=== PATIENT | female | born 1950 | race Two or more races ===

== ENCOUNTER 2017-03-08 14:50 | Inpatient (IN) | payer MEDICARE ==
[~2017-03-08] VITALS: Ht 162.6 cm; Wt 63.5 kg
--- NOTE | 2017-03-08 15:02 | Emergency Room Report ---
History of Present Illness General Chief Complaint: Syncope Source: Patient Present Illness HPI Patient is a 66-year-old female brought in by EMS after being sent in by PMD the patient was noted to have recent syncopal episode. The patient had been undergoing IV antibiotic treatment for infective endocarditis. Patient prior history of bipolar disorder. Patient poorly had a syncopal episode today with unknown length of time. The patient denies any current symptoms. She denies prior syncopal episodes. Patient stated that she had been having a rash to baby oil. Patient stated that the episode occurred while she was having a massage Allergies: Coded Allergies: No Known Allergies (Unverified , 03/08/17) Patient History Past Medical History: see triage record Past Surgical History: unable to obtain Reviewed Nursing Documentation: PMH: Agreed, PSxH: Agreed Nursing Documentation-PM Past Medical History: No History, Except For Hx Cardiac Problems: Yes - Endocarditis, hyperlipidemia Hx Hypertension: Yes - Osteoarthritis, spondylolisthesis, spinal stenosis Hx Asthma: Yes Hx Diabetes: Yes History Of Psychiatric Problem: Yes - Bipolar disorder, major depression Review of Systems All Other Systems: negative except mentioned in HPI Physical Exam Vital Signs Date Time Temp Pulse Resp B/P (MAP) Pulse Ox O2 Delivery O2 Flow Rate FiO2 03/08/17 14:52 98.8 102 20 112/50 97 Room Air Sp02 EP Interpretation: reviewed, normal General Appearance: normal inspection, well appearing, no apparent distress, alert, GCS 15 Head: atraumatic ENT: normal ENT inspection, hearing grossly normal, normal voice Neck: normal inspection, full range of motion, supple, no bony tend Respiratory: normal inspection, lungs clear, normal breath sounds, no respiratory distress, no retraction, no wheezing Cardiovascular #1: regular rate, rhythm, no edema Gastrointestinal: normal inspection, normal bowel sounds, non tender, soft, no guarding, no hernia Genitourinary: no CVA tenderness Musculoskeletal: normal inspection, back normal, normal range of motion Neurologic: normal inspection, alert, oriented x3, responsive, head piece assembler III-XII nml as tested, speech normal Psychiatric: normal inspection, judgement/insight normal, mood/affect normal Skin: normal inspection, other - generalized papular rash Medical Decision Making Diagnostic Impression: Primary Impression: Syncope Additional Impressions: QT prolongation Anemia Endocarditis ER Course patient presented for syncope.Differential diagnosis for syncope included arrhythmia, dehydration, acute coronary syndrome, severe anemia, pulmonary embolus.Because of complexity of patient's case laboratory testing and imaging studies were ordered. The patient noted have prior history of infective endocarditis. Patient was on toddler caregiver. The patient was started on IV fluids. Dr. Anderson was contacted for inpatient management due to patient's recent syncopal episode as well as history of endocarditis. Patient noted be somewhat anemic. The patient was typed and screened for blood. Labs Test 03/08/17 15:15 White Blood Count 3.8 K/UL (4.8-10.8) Red Blood Count 2.82 M/UL (4.20-5.40) Hemoglobin 8.0 G/DL (12.0-16.0) Hematocrit 25.9 % (37.0-47.0) Mean Corpuscular Volume 92 FL (80-99) Mean Corpuscular Hemoglobin 28.2 PG (27.0-31.0) Mean Corpuscular Hemoglobin Concent 30.7 G/DL (32.0-36.0) Red Cell Distribution Width 14.7 % (11.6-14.8) Platelet Count 175 K/UL (150-450) Mean Platelet Volume 6.4 FL (6.5-10.1) Neutrophils (%) (Auto) 75.7 % (45.0-75.0) Lymphocytes (%) (Auto) 17.9 % (20.0-45.0) Monocytes (%) (Auto) 4.7 % (1.0-10.0) Eosinophils (%) (Auto) 0.1 % (0.0-3.0) Basophils (%) (Auto) 1.6 % (0.0-2.0) Prothrombin Time 11.3 SEC (9.30-11.50) Prothromb Time International Ratio 1.1 (0.9-1.1) Activated Partial Thromboplast Time 29 SEC (23-33) Sodium Level 138 MMOL/L (136-145) Potassium Level 3.9 MMOL/L (3.5-5.1) Chloride Level 105 MMOL/L (98-107) Carbon Dioxide Level 24 MMOL/L (21-32) Anion Gap 9 mmol/L (5-15) Blood Urea Nitrogen 19 mg/dL (7-18) Creatinine 0.9 MG/DL (0.55-1.30) Estimat Glomerular Filtration Rate > 60 mL/min (>60) Glucose Level 147 MG/DL (74-106) Lactic Acid Level 1.30 mmol/L (0.66-2.22) Calcium Level 9.1 MG/DL (8.5-10.1) Total Bilirubin 0.4 MG/DL (0.2-1.0) Aspartate Amino Transf (AST/SGOT) 22 U/L (15-37) Alanine Aminotransferase (ALT/SGPT) 22 U/L (12-78) Alkaline Phosphatase 92 U/L (46-116) Total Creatine Kinase 20 U/L (26-308) Creatine Kinase MB 13.4 NG/ML (0.0-3.6) Creatine Kinase MB Relative Index 67.0 Troponin I 0.128 ng/mL (0.000-0.056) Total Protein 7.6 G/DL (6.4-8.2) Albumin 2.7 G/DL (3.4-5.0) Globulin 4.9 g/dL Albumin/Globulin Ratio 0.6 (1.0-2.7) Lipase 163 U/L (73-393) EKG Diagnostic Results Rate: tachycardiac Rhythm: NSR - 104 ST Segments: other - qt prolongation Rhythm Strip Diag. Results EP Interpretation: yes Rhythm: no PVC's, no ectopy, other - sinus tachycardia 105 Last Vital Signs Date Time Temp Pulse Resp B/P (MAP) Pulse Ox O2 Delivery O2 Flow Rate FiO2 03/08/17 14:52 98.8 102 20 112/50 97 Room Air Status: unchanged Disposition: ADMITTED INPATIENT Condition: Serious Augusto Collazo Mar 08, 2017 15:02
--- NOTE | 2017-03-08 15:21 | Diagnostic Imaging Report ---
Indication: Dyspnea Comparison: None A single view chest radiograph was obtained. Findings: Osteopenic. Heart is enlarged. There is a PICC line on the right with the tip in the SVC. Lungs are essentially clear. Vascularity is mildly prominent. Impression: No acute disease
[2017-03-08 15:53] LABS: BASOPHILS % (AUTO) 1.6 % (0.0-2.0); EOSINOPHILS % (AUTO) 0.1 % (0.0-3.0); LYMPHOCYTES % (AUTO) 17.9 % (20.0-45.0); MEAN CORPUSCULAR HEMOGLOBIN 28.2 PG (27.0-31.0); MEAN CORPUSCULAR HGB CONC 30.7 G/DL (32.0-36.0); MEAN CORPUSCULAR VOLUME 92 FL (80-99); MEAN PLATELET VOLUME 6.4 FL (6.5-10.1); MONOCYTES % (AUTO) 4.7 % (1.0-10.0); NEUTROPHILS % (AUTO) 75.7 % (45.0-75.0); PLATELET COUNT 175 K/UL (150-450); RED BLOOD COUNT 2.82 M/UL (4.20-5.40); RED CELL DISTRIBUTION WIDTH 14.7 % (11.6-14.8); WHITE BLOOD COUNT 3.8 K/UL (4.8-10.8)
[2017-03-08 15:56] LABS: INR 1.1 (0.9-1.1); PROTHROMBIN TIME 11.3 SEC (9.30-11.50)
[2017-03-08 16:06] LABS: ANION GAP 9 mmol/L (5-15); CALCIUM 9.1 MG/DL (8.5-10.1); CARBON DIOXIDE 24 MMOL/L (21-32); CHLORIDE 105 MMOL/L (98-107); CREATININE 0.9 MG/DL (0.55-1.30); GLOMERULAR FILTRATION RATE > 60 mL/min (>60); POTASSIUM 3.9 MMOL/L (3.5-5.1); SODIUM 138 MMOL/L (136-145)
[2017-03-08 16:20] LABS: ALANINE AMINOTRANSFERASE 22 U/L (12-78); ALBUMIN/GLOBULIN RATIO 0.6 (1.0-2.7); ASPARTATE AMINO TRANSFERASE 22 U/L (15-37); CKMB 13.4 NG/ML (0.0-3.6); LIPASE 163 U/L (73-393); TOTAL PROTEIN 7.6 G/DL (6.4-8.2)
[2017-03-08 16:30] VITALS: BP 128/62
[2017-03-08] MEDS ORDERED: ALBUTEROL2.5 MG/3 M INH (16:40)
[2017-03-08] MEDS ORDERED: NORCO 5-325 TA1 EACH ORAL (16:40)
[2017-03-08] MEDS ORDERED: ACETAMINOPHEN325 M1 ORAL (16:40)
[2017-03-08] MEDS ORDERED: ASPIR 8181 MG ORAL (16:41)
[2017-03-08] MEDS ORDERED: LISPRO SUBQ (16:41)
[2017-03-08] MEDS ORDERED: VIBRAMYCIN100 MG ORAL (16:43)
[2017-03-08] MEDS ORDERED: FLUOXETINE HCL20 MG ORAL (16:43)
[2017-03-08] MEDS ORDERED: ATORVASTATIN CA40 MG ORAL (16:43)
[2017-03-08] MEDS ORDERED: ZYPREXA5 MG ORAL (16:43)
[2017-03-08] MEDS ORDERED: GENTAMICIN IV (16:43)
[2017-03-08] MEDS ORDERED: METFORMIN HCL850 M1 ORAL (16:45)
[2017-03-08] MEDS ORDERED: LOVENOX10 M4 SUBQ (16:45)
[2017-03-08] MEDS ORDERED: CEPHALEXIN500 M1 ORAL (16:45)
[2017-03-08] MEDS ORDERED: VANCOMYCIN1.5 GM/252 IV (16:45)
[2017-03-08] MEDS ORDERED: COLACE100 MG ORAL (16:45)
--- NOTE | 2017-03-08 18:13 | Cardiology Progress Note ---
Assessment/Plan Assessment/Plan The patient is seen and examined, full consult note is dictated. Objective Last 24 Hour Vital Signs Date Time Temp Pulse Resp B/P (MAP) Pulse Ox O2 Delivery O2 Flow Rate FiO2 03/08/17 14:52 98.8 102 20 112/50 97 Room Air Intake and Output 03/08/17 03/09/17 19:00 07:00 Intake Total 0 ml Balance 0 ml Intake Oral 0 ml Laboratory Tests Test 03/08/17 15:15 White Blood Count 3.8 K/UL (4.8-10.8) L Red Blood Count 2.82 M/UL (4.20-5.40) L Hemoglobin 8.0 G/DL (12.0-16.0) L Hematocrit 25.9 % (37.0-47.0) L Mean Corpuscular Volume 92 FL (80-99) Mean Corpuscular Hemoglobin 28.2 PG (27.0-31.0) Mean Corpuscular Hemoglobin Concent 30.7 G/DL (32.0-36.0) L Red Cell Distribution Width 14.7 % (11.6-14.8) Platelet Count 175 K/UL (150-450) Mean Platelet Volume 6.4 FL (6.5-10.1) L Neutrophils (%) (Auto) 75.7 % (45.0-75.0) H Lymphocytes (%) (Auto) 17.9 % (20.0-45.0) L Monocytes (%) (Auto) 4.7 % (1.0-10.0) Eosinophils (%) (Auto) 0.1 % (0.0-3.0) Basophils (%) (Auto) 1.6 % (0.0-2.0) Prothrombin Time 11.3 SEC (9.30-11.50) Prothromb Time International Ratio 1.1 (0.9-1.1) Activated Partial Thromboplast Time 29 SEC (23-33) Sodium Level 138 MMOL/L (136-145) Potassium Level 3.9 MMOL/L (3.5-5.1) Chloride Level 105 MMOL/L (98-107) Carbon Dioxide Level 24 MMOL/L (21-32) Anion Gap 9 mmol/L (5-15) Blood Urea Nitrogen 19 mg/dL (7-18) H Creatinine 0.9 MG/DL (0.55-1.30) Estimat Glomerular Filtration Rate > 60 mL/min (>60) Glucose Level 147 MG/DL (74-106) H Lactic Acid Level 1.30 mmol/L (0.66-2.22) Calcium Level 9.1 MG/DL (8.5-10.1) Total Bilirubin 0.4 MG/DL (0.2-1.0) Aspartate Amino Transf (AST/SGOT) 22 U/L (15-37) Alanine Aminotransferase (ALT/SGPT) 22 U/L (12-78) Alkaline Phosphatase 92 U/L (46-116) Total Creatine Kinase 20 U/L (26-308) L Creatine Kinase MB 13.4 NG/ML (0.0-3.6) H Creatine Kinase MB Relative Index 67.0 Troponin I 0.128 ng/mL (0.000-0.056) Total Protein 7.6 G/DL (6.4-8.2) Albumin 2.7 G/DL (3.4-5.0) L Globulin 4.9 g/dL Albumin/Globulin Ratio 0.6 (1.0-2.7) L Lipase 163 U/L (73-393) ARMANDO BLUE Mar 08, 2017 18:13
[2017-03-08 18:35] VITALS: BP 134/68
[2017-03-08 20:00] VITALS: BP 105/52
[2017-03-08] MEDS ORDERED: Norco 5mg/325mg tab ORAL PRN (21:00)
[2017-03-08] MEDS ORDERED: Albuterol ud Inhalation HHN PRN (21:00)
[2017-03-08] MEDS: Atorvastatin 20mg tab ORAL SCH (22:27)
[2017-03-08] MEDS: DiphenhydrAMINE 50mg/ml Inj IVP PRN (22:28)
[2017-03-08] MEDS ORDERED: Enoxaparin 40mg Inj SUBQ ONE (23:00)
[2017-03-08] MEDS: Cephalexin 500mg cap ORAL SCH (23:31)
[2017-03-09] VITALS: BP 116/59
[2017-03-09 04:00] VITALS: BP 128/65
--- NOTE | 2017-03-09 04:00 | Consultation ---
DATE OF CONSULTATION: 03/08/2017 CARDIOLOGY CONSULTATION CONSULTING PHYSICIAN: Jose Corbin M.D. REFERRING PHYSICIAN: Carolee Anderson M.D. REASON FOR CONSULTATION: Management of syncope. HISTORY OF PRESENT ILLNESS: The patient is a very unfortunate 66-year-old female, who was brought in by EMS after the primary care physician in the [facility], decision made following an episode of syncopal event that happened when the patient was receiving massage. The patient denies any syncopal event. She claims that she did not lose consciousness, however, according to the note, the patient did have loss of consciousness on arrival to the hospital. She was tachycardic at a rate of 102 and despite three liters of IV fluid in the emergency department, tachycardia persisted. She was admitted to telemetry for further evaluation and management. She was recently diagnosed with infective endocarditis at the hospital in [place] and discharged after one week of therapy with IV antibiotics to [facility]. She currently denies any chest pain or shortness of breath. She states that she was walking in the facility without having any dyspnea on exertion or feeling dizziness or lightheadedness. PAST MEDICAL HISTORY: Infective endocarditis, hyperlipidemia, osteoarthritis, spinal stenosis, spondylolisthesis, history of asthma, history of diabetes mellitus, history of bipolar disorder/history of major depression. PAST SURGICAL HISTORY: Right arm PICC placement. MEDICATIONS: List of medications include acetaminophen 650 mg q.4 h. p.r.n. pain, albuterol inhaler 3 mL inhaler q.4 h. p.r.n. shortness of breath, aspirin 81 mg daily, atorvastatin 40 mg daily at bedtime, cephalexin 500 mg q.6 h. p.o., Colace 100 mg p.o. twice daily, vancomycin 100 mg oral q.12 h., Lovenox 40 mg subcutaneously twice daily, fluoxetine 20 mg p.o. daily, gentamicin 60 mg IV b.i.d., [place] 5/325 mg one tablet q.6 h. p.r.n. pain, metformin 850 mg twice daily, Zyprexa 5 mg p.o. daily at bedtime, and vancomycin 1.5 g IV b.i.d. SOCIAL HISTORY: Denies any tobacco, alcohol, or illicit drug use. FAMILY HISTORY: No premature coronary artery disease or arrhythmogenic in a first-degree relative. REVIEW OF SYSTEMS: HEENT: Denies any headache, diplopia, or blurred vision. CONSTITUTIONAL: Denies any fever, chills, night sweats, or weight loss. CARDIOVASCULAR: Denies any chest pain, shortness breath, PND, or orthopnea. Denies any palpitation. Positive for syncope. PULMONARY: Denies any cough, hemoptysis, or wheezing. GASTROINTESTINAL: Denies any nausea, vomiting, diarrhea, constipation, abdominal pain, or GI bleed. GENITOURINARY: Denies any hematuria, dysuria, or incontinence. NEUROLOGIC: Denies any motor dysfunction, sensory deficit, or altered speech. Positive syncope. PHYSICAL EXAMINATION: VITAL SIGNS: Blood pressure was 112/50, pulse 102, respirations 20, temperature 98.8 degrees Fahrenheit, and O2 saturation 97% on room air. GENERAL: The patient is a very pleasant 66-year-old female, in no apparent respiratory distress, alert and oriented x4. HEENT: Atraumatic and normocephalic. ENT, pupils are equal, round, and reactive to light and accommodation. Extraocular muscles are intact. NECK: JVP less than 5 cm. No carotid bruits. Carotid upstrokes 2+ bilaterally. CARDIOVASCULAR: Normal S1 and S2. Regular rate and rhythm. No murmurs, gallops, or rubs. PMI is at fourth intercostal space in the midclavicular line. LUNGS: Clear to auscultation bilaterally. ABDOMEN: Soft, nontender, and nondistended. No hepatosplenomegaly. Positive bowel sounds. EXTREMITIES: No evidence of edema, clubbing, or cyanosis. DIAGNOSTIC DATA: A 12-lead electrocardiogram shows sinus tachycardia, rate of 105 with QT prolongation, no evidence of ST and T-wave abnormalities. Chest x-ray showed no acute cardiopulmonary disease. LABORATORY FINDINGS: WBC is 3.8, hemoglobin of 8.0, hematocrit 25.9, and platelet count 175,000. Sodium is 138, potassium 3.9, chloride 105, bicarbonate 24, BUN of 19, creatinine 0.9, glucose is 147, and calcium is 9.1. Troponin I is 0.128. INR is 1.1. ASSESSMENT AND PLAN: The patient is a very unfortunate 66-year-old lady, who was seen in Cardiology consultation at the request of Dr. Anderson. 1. Syncopal event. The patient denies it, however, given the history of infective endocarditis, we would like to give a benefit of doubt and do a full workup of syncope including 2D echocardiography for assessment of left ventricular systolic function as well as valvular function in identifying the culprit valve that is causing the infective endocarditis. Immunological phenomenon associated with infective endocarditis needs to be evaluated. The patient also requires carotid duplex artery, orthostatic measurements, and possible Neurology evaluation. 2. Sinus tachycardia, unclear etiology. We would like to obtain blood cultures. Infectious Disease consultation. Hydration, orthostasis may help ruling out dehydration. 3. History of infective endocarditis. It is not clear, which valve was involved. We will obtain 2D echocardiography for assessment of this condition. 4. Further therapeutic and diagnostic decision will be based on the results of the above studies. I would like to thank, Dr. Anderson, for allowing me to participate in the care of this patient. Jose Corbin M.D. DR: Mireya JOB#: [id number] CC:
[2017-03-09 05:47] LABS: BASOPHILS % (AUTO) 1.2 % (0.0-2.0); EOSINOPHILS % (AUTO) 0.1 % (0.0-3.0); LYMPHOCYTES % (AUTO) 15.1 % (20.0-45.0); MEAN CORPUSCULAR HEMOGLOBIN 29.3 PG (27.0-31.0); MEAN CORPUSCULAR HGB CONC 32.7 G/DL (32.0-36.0); MEAN CORPUSCULAR VOLUME 90 FL (80-99); MEAN PLATELET VOLUME 6.7 FL (6.5-10.1); MONOCYTES % (AUTO) 5.5 % (1.0-10.0); NEUTROPHILS % (AUTO) 78.2 % (45.0-75.0); PLATELET COUNT 216 K/UL (150-450); RED BLOOD COUNT 3.06 M/UL (4.20-5.40); RED CELL DISTRIBUTION WIDTH 14.8 % (11.6-14.8); WHITE BLOOD COUNT 4.1 K/UL (4.8-10.8)
[2017-03-09 05:59] LABS: ALANINE AMINOTRANSFERASE 21 U/L (12-78); ALBUMIN/GLOBULIN RATIO 0.5 (1.0-2.7); ANION GAP 10 mmol/L (5-15); ASPARTATE AMINO TRANSFERASE 19 U/L (15-37); CALCIUM 9.4 MG/DL (8.5-10.1); CARBON DIOXIDE 22 MMOL/L (21-32); CHLORIDE 107 MMOL/L (98-107); CHOLESTEROL 89 MG/DL (< 200); CHOLESTEROL/HDL RATIO 2.6 (3.3-4.4); CREATININE 0.7 MG/DL (0.55-1.30); GLOMERULAR FILTRATION RATE > 60 mL/min (>60); POTASSIUM 3.8 MMOL/L (3.5-5.1); SODIUM 139 MMOL/L (136-145); TOTAL PROTEIN 7.7 G/DL (6.4-8.2)
[2017-03-09] MEDS: Cephalexin 500mg cap ORAL SCH ×2 (06:17→12:00)
[2017-03-09 06:27] LABS: HEMOGLOBIN A1C 7.1 % (4.3-6.0)
[2017-03-09 08:00] VITALS: BP 127/61
[2017-03-09] MEDS: Aspirin EC 81mg tab ORAL SCH (08:20)
[2017-03-09] MEDS: Docusate 100mg cap ORAL SCH ×2 (08:20→18:05)
--- NOTE | 2017-03-09 09:33 | Consultation ---
History of Present Illness General Date patient seen: Mar 09, 2017 Time patient seen: 10:34 Chief Complaint: Syncope Present Illness HPI 66 y/o F with hx of HLD, OA, spinal stenosis, endocarditis, DM2, Bipolar disorder, spondylolisthesis, asthma presents to ED on 03/08 after syncopal episode while patient receiving massage at rehab center. No LOC but did had LOC on arribale to hospital. In ED noted to be tachycardic to 102 despite 3 L of fluid. EKG with prolonged qtc 486. 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 Denies CP, SOB, FLORES, dizziness/lightheadedness upon admission. patient afebrile, no leukocytosis. echo pending REviewed records in the chart- patient presented to [facility] on 01/27 for low back pain and elevated trops. 2d echo showed possible AV vegatation. NATHAN was going to be done but patient left AMA on 01/29. Eventually she got NATHAN which showed echodense material on AV and also a mobile stucture pulling on LV- possible vegetations vs marantic non-infectious vegetations or fibroelastoma was considered. Started on IV Ceftriaxone and Vancomycin and discharged to [facility] Per physicians order at rehab: Doxycycline was planned up to 06/03/17 and Gentamycin 60mg IV bid until 03/17/17, IV Vancomycin until 04/09/17 Allergies: Uncoded Allergies: Baby oil (Allergy, Severe, Itching, 03/08/17) Medication History Scheduled Aspirin* (Aspir 81*), 81 MG ORAL DAILY, (Reported) Atorvastatin Calcium* (Atorvastatin Calcium*), 40 MG ORAL BEDTIME, (Reported) Cephalexin* (Cephalexin*), 500 MG ORAL EVERY 6 HOURS, (Reported) Docusate Sodium* (Colace*), 100 MG ORAL TWICE A DAY, (Reported) Doxycycline Hyclate* (Vibramycin*), 100 MG ORAL EVERY 12 HOURS, (Reported) Enoxaparin* (Lovenox*), 40 MG SUBQ BID, (Reported) Fluoxetine Hcl* (Fluoxetine Hcl*), 20 MG ORAL DAILY, (Reported) Gentamicin In Nacl, Iso-Osm (Gentamicin 70 Mg/Ns 50 Ml Pb), 60 MG IV BID, ( Reported) Metformin Hcl* (Metformin Hcl*), 850 MG ORAL BID, (Reported) Olanzapine* (Zyprexa*), 5 MG ORAL BEDTIME, (Reported) Vancomycin HCl/D5w (Vancomycin 1.5 Gram/250 ml-D5w), 1.5 GM IV BID, (Reported) [Lispro], Unknown Dose SUBQ BEFORE MEALS, (Reported) Scheduled PRN Acetaminophen* (Acetaminophen 325MG Tablet*), 650 MG ORAL Q4H PRN for For Pain, (Reported) Albuterol Sulfate* (Albuterol Sulfate Hhn*), 3 ML INH Q4H PRN for Shortness of Breath, (Reported) Hydrocodone Bit/Acetaminophen 5-325* ([place] 5-325*), 1 TAB ORAL Q6H PRN for For Pain, (Reported) Patient History Healthcare decision maker N Resuscitation status Full Code Advanced Directive on File Patient History Narrative Pmx: as above SH: Denies any tobacco, alcohol, or illicit drug use. Fhx non contributory Review of Systems ROS Narrative as per HPI, otherwise negative Physical Exam Cardiovascular/Chest: regularly irregular Physical Exam Narrative GENERAL: The patient is a very pleasant 66-year-old female, in no apparent respiratory distress, alert and oriented x4. HEENT: Atraumatic and normocephalic. ENT, pupils are equal, round, and reactive to light and accommodation. Extraocular muscles are intact. NECK: JVP less than 5 cm. No carotid bruits. Carotid upstrokes 2+ bilaterally. CARDIOVASCULAR: Normal S1 and S2. Regular rate and rhythm. No murmurs, gallops, or rubs. PMI is at fourth intercostal space in the midclavicular line. LUNGS: Clear to auscultation bilaterally. ABDOMEN: Soft, nontender, and nondistended. No hepatosplenomegaly. Positive bowel sounds. EXTREMITIES: No evidence of edema, clubbing, or cyanosis. Last 24 Hour Vital Signs Date Time Temp Pulse Resp B/P (MAP) Pulse Ox O2 Delivery O2 Flow Rate FiO2 03/09/17 08:00 97.8 115 21 127/61 97 Room Air 03/09/17 04:00 119 03/09/17 04:00 97.5 100 23 128/65 89 Room Air 03/09/17 00:00 98.1 106 23 116/59 85 Room Air 03/09/17 00:00 110 03/08/17 20:00 97.9 100 23 105/52 94 Room Air 03/08/17 20:00 108 03/08/17 18:35 98.4 78 20 134/68 99 Room Air 03/08/17 16:30 98.4 82 20 128/62 99 Room Air 03/08/17 14:52 98.8 102 20 112/50 97 Room Air Laboratory Tests Test 03/08/17 15:15 03/08/17 18:45 03/09/17 05:15 White Blood Count 3.8 K/UL (4.8-10.8) L 4.1 K/UL (4.8-10.8) L Red Blood Count 2.82 M/UL (4.20-5.40) L 3.06 M/UL (4.20-5.40) L Hemoglobin 8.0 G/DL (12.0-16.0) L 9.0 G/DL (12.0-16.0) L Hematocrit 25.9 % (37.0-47.0) L 27.5 % (37.0-47.0) L Mean Corpuscular Volume 92 FL (80-99) 90 FL (80-99) Mean Corpuscular Hemoglobin 28.2 PG (27.0-31.0) 29.3 PG (27.0-31.0) Mean Corpuscular Hemoglobin Concent 30.7 G/DL (32.0-36.0) L 32.7 G/DL (32.0-36.0) Red Cell Distribution Width 14.7 % (11.6-14.8) 14.8 % (11.6-14.8) Platelet Count 175 K/UL (150-450) 216 K/UL (150-450) Mean Platelet Volume 6.4 FL (6.5-10.1) L 6.7 FL (6.5-10.1) Neutrophils (%) (Auto) 75.7 % (45.0-75.0) H 78.2 % (45.0-75.0) H Lymphocytes (%) (Auto) 17.9 % (20.0-45.0) L 15.1 % (20.0-45.0) L Monocytes (%) (Auto) 4.7 % (1.0-10.0) 5.5 % (1.0-10.0) Eosinophils (%) (Auto) 0.1 % (0.0-3.0) 0.1 % (0.0-3.0) Basophils (%) (Auto) 1.6 % (0.0-2.0) 1.2 % (0.0-2.0) Prothrombin Time 11.3 SEC (9.30-11.50) Prothromb Time International Ratio 1.1 (0.9-1.1) Activated Partial Thromboplast Time 29 SEC (23-33) Sodium Level 138 MMOL/L (136-145) 139 MMOL/L (136-145) Potassium Level 3.9 MMOL/L (3.5-5.1) 3.8 MMOL/L (3.5-5.1) Chloride Level 105 MMOL/L (98-107) 107 MMOL/L (98-107) Carbon Dioxide Level 24 MMOL/L (21-32) 22 MMOL/L (21-32) Anion Gap 9 mmol/L (5-15) 10 mmol/L (5-15) Blood Urea Nitrogen 19 mg/dL (7-18) H 15 mg/dL (7-18) Creatinine 0.9 MG/DL (0.55-1.30) 0.7 MG/DL (0.55-1.30) Estimat Glomerular Filtration Rate > 60 mL/min (>60) > 60 mL/min (>60) Glucose Level 147 MG/DL (74-106) H 160 MG/DL (74-106) H Lactic Acid Level 1.30 mmol/L (0.66-2.22) Calcium Level 9.1 MG/DL (8.5-10.1) 9.4 MG/DL (8.5-10.1) Total Bilirubin 0.4 MG/DL (0.2-1.0) 0.4 MG/DL (0.2-1.0) Aspartate Amino Transf (AST/SGOT) 22 U/L (15-37) 19 U/L (15-37) Alanine Aminotransferase (ALT/SGPT) 22 U/L (12-78) 21 U/L (12-78) Alkaline Phosphatase 92 U/L (46-116) 95 U/L (46-116) Total Creatine Kinase 20 U/L (26-308) L Creatine Kinase MB 13.4 NG/ML (0.0-3.6) H Creatine Kinase MB Relative Index 67.0 Troponin I 0.128 ng/mL (0.000-0.056) Total Protein 7.6 G/DL (6.4-8.2) 7.7 G/DL (6.4-8.2) Albumin 2.7 G/DL (3.4-5.0) L 2.7 G/DL (3.4-5.0) L Globulin 4.9 g/dL 5.0 g/dL Albumin/Globulin Ratio 0.6 (1.0-2.7) L 0.5 (1.0-2.7) L Lipase 163 U/L (73-393) Magnesium Level 1.3 MG/DL (1.8-2.4) L Hemoglobin A1c 7.1 % (4.3-6.0) H Triglycerides Level 60 MG/DL (0-200) Cholesterol Level 89 MG/DL (< 200) LDL Cholesterol 46 mg/dL (<100) HDL Cholesterol 34 MG/DL (40-60) L Cholesterol/HDL Ratio 2.6 (3.3-4.4) L Height (Feet): 5 Height (Inches): 4.00 Weight (Pounds): 140 Medications Current Medications Medications (Trade) Dose Ordered Sig/[place] Route PRN Reason Start Time Stop Time Status Last Admin Dose Admin Acetaminophen (Tylenol) 650 mg Q4H PRN ORAL For Pain 03/08/17 21:00 04/07/17 20:59 Acetaminophen/ Hydrocodone Bitart ([place] 5/325) 1 tab Q6H PRN ORAL For Moderate to Severe Pain 03/08/17 21:00 03/15/17 20:59 Albuterol Sulfate (Proventil) 2.5 mg Q4H PRN HHN Shortness of Breath 03/08/17 21:00 03/13/17 20:59 Aspirin (Ecotrin) 81 mg DAILY ORAL 03/09/17 09:00 04/08/17 08:59 03/09/17 08:20 Atorvastatin Calcium (Lipitor) 40 mg BEDTIME ORAL 03/08/17 22:30 04/07/17 22:29 03/08/17 22:27 Cephalexin (Keflex) 500 mg EVERY 6 HOURS ORAL 03/09/17 00:00 03/16/17 00:00 03/09/17 06:17 Diphenhydramine HCl (Benadryl) 25 mg Q6H PRN IVP Itching 03/08/17 22:00 04/07/17 21:59 03/08/17 22:28 Docusate Sodium (Colace) 100 mg TWICE A DAY ORAL 03/09/17 09:00 04/08/17 08:59 03/09/17 08:20 Doxycycline Monohydrate (Vibramycin) 100 mg EVERY 12 HOURS ORAL 03/08/17 22:30 03/15/17 22:29 03/09/17 08:21 Enoxaparin Sodium (Lovenox) 40 mg BID SUBQ 03/09/17 09:00 04/08/17 08:59 UNV Fluoxetine HCl (PROzac) 20 mg DAILY ORAL 03/09/17 09:00 04/08/17 08:59 03/09/17 08:21 Metformin HCl (Glucophage) 850 mg BID ORAL 03/09/17 09:00 04/08/17 08:59 Olanzapine (ZyPREXA) 5 mg BEDTIME ORAL 03/08/17 22:30 04/07/17 22:29 03/08/17 22:27 Assessment/Plan Assessment/Plan Abx: 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) Keflex 03/09- Assesment: -Syncopal episode- r/o anatomic obstruction due to vegetations vs conduction abnormalities vs other -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 Will continue abx tx as per her outpt ID physician -d/c keflex -f/u 2d echo; may need NATHAN -2 sets pf Bcx -bartonella serologies -ESR/CRP am (for baseine) -f/u cx -Monitor CBC/BMP, temperatures Thank you for this consultation. Will continue to follow along with you. Discussed with Antonia Duke M.D. Mar 09, 2017 09:33
[2017-03-09] MEDS: DiphenhydrAMINE 50mg/ml Inj IVP PRN ×2 (09:43→16:33)
[2017-03-09 12:00] VITALS: BP 126/51
[2017-03-09] MEDS ORDERED: Gentamicin Rx monitoring MISC PRN (13:00)
[2017-03-09] MEDS: Enoxaparin 40mg Inj SUBQ SCH (13:12)
--- NOTE | 2017-03-09 13:24 | History & Physical ---
History and Physical History & Physicial Dictated for Int Med-Dr Anderson no. [id number]. LUCILA NUÑEZ Mar 09, 2017 13:24
[2017-03-09] MEDS ORDERED: Vancomycin 1gm/D5W 275ml IVPB ONE ×2 (14:00)
[2017-03-09] MEDS ORDERED: Gentamicin inj 300 MG in NS 110 ML IVPB SCH (15:30)
[2017-03-09 16:00] VITALS: BP 115/52
[2017-03-09] MEDS ORDERED: Tubing IV Secondary IV ONE (16:11)
[2017-03-09] MEDS: GENTAMICIN IVPB SCH (16:34)
[2017-03-09] MEDS: NS IVPB SCH (16:34)
[2017-03-09] MEDS ORDERED: Clobetasol Cream 0.05% 15gm TOPIC SCH (18:00)
[2017-03-09] MEDS: Clobetasol Cream 0.05% 15gm TOPIC SCH (18:05)
[2017-03-09 20:15] VITALS: BP 114/54
[2017-03-09] MEDS: Atorvastatin 20mg tab ORAL SCH (21:12)
[2017-03-09] MEDS: Dyna-Hex 2% Top Sol 2oz TOPIC SCH (21:12)
--- NOTE | 2017-03-09 21:30 | History and Physical Report ---
DATE OF ADMISSION: 03/08/2017 CHIEF COMPLAINT: The patient is a 66-year-old white female, presents with a chief complaint of "I passed out." HISTORY OF PRESENT ILLNESS: The patient is a resident of [facility]. According to staff at [facility], the patient was undergoing physical therapy. The patient had a heating pad on her back. The patient began to feel dizzy. The patient put her head down. The patient states she is aware of everything that was going on during this episode. The patient denies loss of consciousness. EMS was called. The patient was transported to [facility] for syncopal episode. It began in January. The patient apparently was diagnosed with endocarditis in [place]. The patient was started on intravenous vancomycin and gentamicin. The patient has a PICC line in place. The patient was transferred to [facility], because the patient left the residential facility in [place]. According to staff at [facility], the patient began to experience dizziness yesterday, 03/08/2017 during physical therapy. The patient had a heating pad on her back. The patient put her head down on the table. The patient states she did not lose consciousness. The patient states she was only dizzy. EMS was called. The patient was transported to [facility] for near syncopal episode. REVIEW OF SYSTEMS: CONSTITUTIONAL: The patient denies weight loss or weight gain. The patient denies fevers or chills. HEENT: The patient denies ear or throat pain. The patient denies headache. CARDIOVASCULAR: The patient denies palpitation or chest pain. CHEST: The patient denies wheeze or shortness of breath. ABDOMEN: The patient denies nausea, vomiting, diarrhea, or constipation. GENITOURINARY: The patient denies dysuria or increased frequency of urination. NEUROMUSCULAR: The patient complains of near syncopal episode as above. The patient denies seizures or generalized weakness. INTEGUMENT: The patient complains of a rash over the trunk. PAST MEDICAL HISTORY: Significant for: 1. Type 2 diabetes. 2. Hypertension. 3. Hypercholesterolemia. 4. Asthma. 5. Chronic low back pain. 6. Osteoarthritis of bilateral knees. PAST SURGICAL HISTORY: The patient denies. CURRENT MEDICATIONS: From [facility], 1. Aspirin 81 mg one tablet p.o. daily. 2. Atorvastatin 40 mg one tablet p.o. daily. 3. Doxycycline 100 mg one tablet p.o. twice daily. 4. Fluoxetine 20 mg one tablet p.o. daily. 5. Gentamicin 60 mg IV twice daily. 6. Zyprexa 5 mg one tablet p.o. at bedtime. 7. Vancomycin 1.5 g IV q.12 h. 8. Metformin 850 mg one tablet p.o. twice daily. 9. Keflex 500 mg one tablet p.o. four times daily. 10. Colace 100 mg one tablet p.o. twice daily. 11. Lovenox 40 mg one tablet subcutaneously daily. ALLERGIES: No known drug allergies. SOCIAL HISTORY: The patient is a . The patient admits to tobacco use of 1 cigarette daily. The patient denies alcohol use. PHYSICAL EXAMINATION: VITAL SIGNS: Temperature 98.4 respirations 20, pulse 78, and blood pressure 134/68. GENERAL: The patient is a well-developed and well-nourished female, in no apparent distress. HEENT: Eyes, pupils are equal and responsive to light and accommodation. Extraocular movements are intact. NECK: Supple without lymphadenopathy. CHEST: Lungs are clear to auscultation bilaterally without wheezes or rales. CARDIOVASCULAR: Regular rhythm and rate. S1 and S2 are normal without murmurs, rubs, or gallops. ABDOMEN: Soft, nontender, nondistended with positive bowel sounds. No evidence of hepatosplenomegaly. Currently, no rebound or guarding noted. EXTREMITIES: Negative for clubbing, cyanosis, or edema. NEUROLOGIC: Cranial nerves II to XII are grossly intact without focal deficits. Motor strength is 5/5 bilaterally. DTR reflexes are 2+ plantar. LABORATORY STUDIES: WBC is 3.8, hemoglobin 8.3, hematocrit 25.9, and platelets 175,000. Sodium 138, potassium 3.9, chloride 105, CO2 24, BUN 9, creatinine 0.9, and glucose 147. Troponin elevated at 0.128. ASSESSMENT: This is a 66-year-old female. 1. Endocarditis. 2. Syncopal episode. 3. Rash. 4. Diabetes type 2. 5. Hypertension. 6. Hypercholesterolemia. 7. Asthma. 8. Osteoarthritis of the bilateral knees. 9. Chronic low back pain. TREATMENT: 1. Endocarditis. Infectious Disease consultation will be obtained with Dr. Hsieh. Continue gentamicin and vancomycin as above. We will follow recommendations concerning Keflex and doxycycline per Infectious Disease. The patient has a PICC line in place. PICC line age is unknown. Plan will be replaced. 2. Syncopal episode. A Cardiology consultation has been obtained with Dr. Jose Corbin. Carotid Duplex and Dopplers are pending. We will follow recommendation of Dr. Corbin. 3. Diabetes type 2. Continue metformin as above. NovoLog sliding scale has been instituted. 4. Hypertension. The patient is currently normotensive. Continue clonidine 0.1 mg p.r.n. 5. Hypercholesterolemia. Continue atorvastatin as above. 6. Asthma. Continue albuterol metered dose inhaler two puffs p.o. q.i.d. p.r.n. 7. Osteoarthritis of the knees. 8. Chronic low back pain. Naldo Mantilla M.D. DR: Sree JOB#: [id number] CC:
[2017-03-10 00:21] VITALS: BP 106/49
[2017-03-10] MEDS: Vancomycin 750mg/NS 250ml IVPB SCH ×2 (02:25→13:58)
[2017-03-10 04:20] VITALS: BP 101/42
[2017-03-10] MEDS: NS IVPB SCH ×2 (04:26→16:02)
[2017-03-10] MEDS: GENTAMICIN IVPB SCH ×2 (04:26→16:02)
[2017-03-10 07:19] LABS: MEAN CORPUSCULAR HEMOGLOBIN 29.4 PG (27.0-31.0); MEAN CORPUSCULAR HGB CONC 32.6 G/DL (32.0-36.0); MEAN CORPUSCULAR VOLUME 90 FL (80-99); MEAN PLATELET VOLUME 6.8 FL (6.5-10.1); PLATELET COUNT 206 K/UL (150-450); RED BLOOD COUNT 3.03 M/UL (4.20-5.40); RED CELL DISTRIBUTION WIDTH 14.7 % (11.6-14.8); WHITE BLOOD COUNT 2.8 K/UL (4.8-10.8)
[2017-03-10 07:55] LABS: ANION GAP 8 mmol/L (5-15); CALCIUM 9.2 MG/DL (8.5-10.1); CARBON DIOXIDE 24 MMOL/L (21-32); CHLORIDE 107 MMOL/L (98-107); CREATININE 0.8 MG/DL (0.55-1.30); GLOMERULAR FILTRATION RATE > 60 mL/min (>60); POTASSIUM 3.8 MMOL/L (3.5-5.1); SODIUM 139 MMOL/L (136-145)
[2017-03-10 08:00] VITALS: BP 121/54
[2017-03-10] MEDS: Aspirin EC 81mg tab ORAL SCH (08:29)
[2017-03-10] MEDS: Docusate 100mg cap ORAL SCH ×2 (08:29→17:03)
[2017-03-10] MEDS: Clobetasol Cream 0.05% 15gm TOPIC SCH ×2 (08:30→20:57)
[2017-03-10] MEDS: Enoxaparin 40mg Inj SUBQ SCH (08:31)
[2017-03-10] MEDS: DiphenhydrAMINE 50mg/ml Inj IVP PRN ×2 (08:32→16:37)
[2017-03-10 10:05] LABS: ANISOCYTOSIS 1+; BAND NEUTROPHILS % (MANUAL) 0 % (0-8); BASOPHILS % (MANUAL) 0 % (0-2); EOSINOPHILS % (MANUAL) 0 % (0-3); HYPOCHROMASIA 2+; LYMPHOCYTES % (MANUAL) 27 % (20-45); NEUTROPHILS % (MANUAL) 69 % (45-75); PLATELET ESTIMATE ADEQUATE; PLATELET MORPHOLOGY NORMAL; TOTAL CELLS COUNTED 100
--- NOTE | 2017-03-10 10:13 | General Progress Note ---
Assessment/Plan Status: unchanged Assessment/Plan 1. Acute encephlopathy 2. Sinus Tachy cardia 3. Pleural effusion 4. Pericardial effusion 5. Endocarditis. 6. Iatrogenic skin rashes 4. Diabetes type 2. 5. Hypertension. 6. Hypercholesterolemia. 7. Asthma. 8. Osteoarthritis of the bilateral knees. 9. Chronic low back pain. 10. GI-DVT prophylaxia Plan: case discussed with cardiology Dr Corbin. Dr figueroa consulted. Subjective ROS Limited/Unobtainable: No Constitutional: Reports: malaise HEENT: Reports: no symptoms Cardiovascular: Reports: no symptoms Allergies: Coded Allergies: CEPHALEXIN (Verified Allergy, Intermediate, diffuse maculopapular rash, ) Uncoded Allergies: Baby oil (Allergy, Severe, Itching, 03/08/17) Objective Last 24 Hour Vital Signs Date Time Temp Pulse Resp B/P (MAP) Pulse Ox O2 Delivery O2 Flow Rate FiO2 03/10/17 08:00 109 03/10/17 07:55 110 20 Room Air 03/10/17 04:20 98.2 106 20 101/42 94 Nasal Cannula 2.0 03/10/17 04:00 105 03/10/17 00:21 99.3 112 20 106/49 94 Room Air 03/10/17 00:00 117 03/09/17 20:15 98.8 113 20 114/54 94 Room Air 03/09/17 20:00 115 03/09/17 19:52 117 18 Room Air 03/09/17 16:00 113 03/09/17 16:00 99.5 112 20 115/52 96 Room Air 03/09/17 12:00 113 03/09/17 12:00 99.3 112 20 126/51 93 Room Air Laboratory Tests 03/10/17 06:10: White Blood Count 2.8L, Red Blood Count 3.03L, Hemoglobin 8.9L, Hematocrit 27.3L , Mean Corpuscular Volume 90, Mean Corpuscular Hemoglobin 29.4, Mean Corpuscular Hemoglobin Concent 32.6, Red Cell Distribution Width 14.7, Platelet Count 206, Mean Platelet Volume 6.8, Neutrophils (%) (Auto) , Lymphocytes (%) ( Auto) , Monocytes (%) (Auto) , Eosinophils (%) (Auto) , Basophils (%) (Auto) , Differential Total Cells Counted 100, Neutrophils % (Manual) 69, Lymphocytes % ( Manual) 27, Monocytes % (Manual) 4, Eosinophils % (Manual) 0, Basophils % ( Manual) 0, Band Neutrophils 0, Platelet Estimate Adequate, Platelet Morphology Normal, Hypochromasia 2+, Anisocytosis 1+, Erythrocyte Sedimentation Rate 120H, Sodium Level 139, Potassium Level 3.8, Chloride Level 107, Carbon Dioxide Level 24, Anion Gap 8, Blood Urea Nitrogen 15, Creatinine 0.8, Estimat Glomerular Filtration Rate > 60, Glucose Level 144H, Calcium Level 9.2, C-Reactive Protein , Quantitative 1.3H Height (Feet): 5 Height (Inches): 4.00 Weight (Pounds): 140 General Appearance: no apparent distress EENT: PERRL/EOMI Neck: supple Cardiovascular: tachycardia Abdomen: soft Extremities: non-tender 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
--- NOTE | 2017-03-10 10:30 | Consultation ---
History of Present Illness General Date patient seen: Mar 10, 2017 Chief Complaint: Syncope Referring physician: Dr. Anderson Reason for Consultation: abnormal cxr Present Illness HPI 66-year-old female with hx of endocarditis, brought in by EMS from a retirement for a recent syncopal episode. The patient had been undergoing IV antibiotic treatment for infective endocarditis. The patient denies any current symptoms. She denies prior syncopal episodes. Patient stated that she had been having a rash to baby oil. Her initial cxr showed cardiomegaly and possible pleural effusion. I was asked to evaluate her. Allergies: Coded Allergies: CEPHALEXIN (Verified Allergy, Intermediate, diffuse maculopapular rash, ) Uncoded Allergies: Baby oil (Allergy, Severe, Itching, 03/08/17) Medication History Scheduled Aspirin* (Aspir 81*), 81 MG ORAL DAILY, (Reported) Atorvastatin Calcium* (Atorvastatin Calcium*), 40 MG ORAL BEDTIME, (Reported) Cephalexin* (Cephalexin*), 500 MG ORAL EVERY 6 HOURS, (Reported) Docusate Sodium* (Colace*), 100 MG ORAL TWICE A DAY, (Reported) Doxycycline Hyclate* (Vibramycin*), 100 MG ORAL EVERY 12 HOURS, (Reported) Enoxaparin* (Lovenox*), 40 MG SUBQ BID, (Reported) Fluoxetine Hcl* (Fluoxetine Hcl*), 20 MG ORAL DAILY, (Reported) Gentamicin In Nacl, Iso-Osm (Gentamicin 70 Mg/Ns 50 Ml Pb), 60 MG IV BID, ( Reported) Metformin Hcl* (Metformin Hcl*), 850 MG ORAL BID, (Reported) Olanzapine* (Zyprexa*), 5 MG ORAL BEDTIME, (Reported) Vancomycin HCl/D5w (Vancomycin 1.5 Gram/250 ml-D5w), 1.5 GM IV BID, (Reported) [Lispro], Unknown Dose SUBQ BEFORE MEALS, (Reported) Scheduled PRN Acetaminophen* (Acetaminophen 325MG Tablet*), 650 MG ORAL Q4H PRN for For Pain, (Reported) Albuterol Sulfate* (Albuterol Sulfate Hhn*), 3 ML INH Q4H PRN for Shortness of Breath, (Reported) Hydrocodone Bit/Acetaminophen 5-325* ([place] 5-325*), 1 TAB ORAL Q6H PRN for For Pain, (Reported) Patient History Healthcare decision maker N Resuscitation status Full Code Advanced Directive on File Past Medical/Surgical History Past Medical/Surgical History: (1) Endocarditis Review of Systems All Other Systems: negative except mentioned in HPI Physical Exam General Appearance: WD/WN Lines, tubes and drains: peripheral HEENT: normocephalic, atraumatic Neck: non-tender, normal alignment Respiratory/Chest: chest wall non-tender, normal breath sounds Cardiovascular/Chest: normal peripheral pulses, normal rate Abdomen: normal bowel sounds, non tender Genitourinary/Rectal: normal genital exam Extremities: normal range of motion, non-tender Skin Exam: normal pigmentation 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 Last 24 Hour Vital Signs Date Time Temp Pulse Resp B/P (MAP) Pulse Ox O2 Delivery O2 Flow Rate FiO2 03/10/17 08:00 109 03/10/17 07:55 110 20 Room Air 03/10/17 04:20 98.2 106 20 101/42 94 Nasal Cannula 2.0 03/10/17 04:00 105 03/10/17 00:21 99.3 112 20 106/49 94 Room Air 03/10/17 00:00 117 03/09/17 20:15 98.8 113 20 114/54 94 Room Air 03/09/17 20:00 115 03/09/17 19:52 117 18 Room Air 03/09/17 16:00 113 03/09/17 16:00 99.5 112 20 115/52 96 Room Air 03/09/17 12:00 113 03/09/17 12:00 99.3 112 20 126/51 93 Room Air Laboratory Tests Test 03/10/17 06:10 White Blood Count 2.8 K/UL (4.8-10.8) L Red Blood Count 3.03 M/UL (4.20-5.40) L Hemoglobin 8.9 G/DL (12.0-16.0) L Hematocrit 27.3 % (37.0-47.0) L Mean Corpuscular Volume 90 FL (80-99) Mean Corpuscular Hemoglobin 29.4 PG (27.0-31.0) Mean Corpuscular Hemoglobin Concent 32.6 G/DL (32.0-36.0) Red Cell Distribution Width 14.7 % (11.6-14.8) Platelet Count 206 K/UL (150-450) Mean Platelet Volume 6.8 FL (6.5-10.1) Neutrophils (%) (Auto) % (45.0-75.0) Lymphocytes (%) (Auto) % (20.0-45.0) Monocytes (%) (Auto) % (1.0-10.0) Eosinophils (%) (Auto) % (0.0-3.0) Basophils (%) (Auto) % (0.0-2.0) Differential Total Cells Counted 100 Neutrophils % (Manual) 69 % (45-75) Lymphocytes % (Manual) 27 % (20-45) Monocytes % (Manual) 4 % (1-10) Eosinophils % (Manual) 0 % (0-3) Basophils % (Manual) 0 % (0-2) Band Neutrophils 0 % (0-8) Platelet Estimate Adequate Platelet Morphology Normal Hypochromasia 2+ Anisocytosis 1+ Erythrocyte Sedimentation Rate 120 MM/HR (0-30) H Sodium Level 139 MMOL/L (136-145) Potassium Level 3.8 MMOL/L (3.5-5.1) Chloride Level 107 MMOL/L (98-107) Carbon Dioxide Level 24 MMOL/L (21-32) Anion Gap 8 mmol/L (5-15) Blood Urea Nitrogen 15 mg/dL (7-18) Creatinine 0.8 MG/DL (0.55-1.30) Estimat Glomerular Filtration Rate > 60 mL/min (>60) Glucose Level 144 MG/DL (74-106) H Calcium Level 9.2 MG/DL (8.5-10.1) C-Reactive Protein, Quantitative 1.3 mg/dL (0.00-0.90) H Height (Feet): 5 Height (Inches): 4.00 Weight (Pounds): 140 Medications Current Medications Medications (Trade) Dose Ordered Sig/[place] Route PRN Reason Start Time Stop Time Status Last Admin Dose Admin Acetaminophen (Tylenol) 650 mg Q4H PRN ORAL For Pain 03/08/17 21:00 04/07/17 20:59 Acetaminophen/ Hydrocodone Bitart ([place] 5/325) 1 tab Q6H PRN ORAL For Moderate to Severe Pain 03/08/17 21:00 03/15/17 20:59 Albuterol Sulfate (Proventil) 2.5 mg Q4H PRN HHN Shortness of Breath 03/08/17 21:00 03/13/17 20:59 Aspirin (Ecotrin) 81 mg DAILY ORAL 03/09/17 09:00 04/08/17 08:59 03/10/17 08:29 Atorvastatin Calcium (Lipitor) 40 mg BEDTIME ORAL 03/08/17 22:30 04/07/17 22:29 03/09/17 21:12 Chlorhexidine Gluconate (Ling-Hex 2%) 1 applic DAILY@2000 TOPIC 03/09/17 20:00 04/08/17 19:59 03/09/17 21:12 Clobetasol Propionate (Temovate) 1 applic TWICE A DAY TOPIC 03/09/17 18:00 04/08/17 17:59 03/10/17 08:30 Diphenhydramine HCl (Benadryl) 25 mg Q6H PRN IVP Itching 03/08/17 22:00 04/07/17 21:59 03/10/17 08:32 Docusate Sodium (Colace) 100 mg TWICE A DAY ORAL 03/09/17 09:00 04/08/17 08:59 03/10/17 08:29 Doxycycline Monohydrate (Vibramycin) 100 mg EVERY 12 HOURS ORAL 03/08/17 22:30 03/15/17 22:29 03/10/17 08:29 Enoxaparin Sodium (Lovenox) 40 mg DAILY SUBQ 03/09/17 13:00 04/08/17 12:59 03/10/17 08:31 Fluoxetine HCl (PROzac) 20 mg DAILY ORAL 03/09/17 09:00 04/08/17 08:59 03/10/17 08:29 Gentamicin Protocol (Gentamicin pharmacy to dose) 1 ea DAILY PRN MISC Per rx protocol 03/09/17 13:00 03/17/17 23:55 Gentamicin Sulfate 60 mg/ Sodium Chloride 56.5 ml @ 110 mls/hr Q12H IVPB 03/09/17 16:00 03/16/17 15:59 03/10/17 04:26 Metformin HCl (Glucophage) 850 mg BID ORAL 03/09/17 09:00 04/08/17 08:59 03/09/17 18:05 Olanzapine (ZyPREXA) 5 mg BEDTIME ORAL 03/08/17 22:30 04/07/17 22:29 03/09/17 21:12 Vancomycin HCl (Vanco rx to dose) 1 ea DAILY PRN MISC Per rx protocol 03/09/17 13:00 04/08/17 12:59 Vancomycin/Sodium Chloride 250 ml @ 166.667 mls/hr Q12H IVPB 03/10/17 02:00 03/15/17 01:59 03/10/17 02:25 Assessment/Plan Problem List: (1) Cardiomegaly ICD Codes: I51.7 - Cardiomegaly SNOMED: 3031546 (2) Syncope ICD Codes: R55 - Syncope and collapse SNOMED: 346921260 (3) Anemia ICD Codes: D64.9 - Anemia, unspecified SNOMED: 191341526 Assessment/Plan CXR showing minimal effusion, I will repeat the it in the morning. anemia w/u including OB, iron studies ordered continue abx, F/u with ID DOMO MULTANI Mar 10, 2017 10:30
--- NOTE | 2017-03-10 10:54 | Diagnostic Imaging Report ---
Indication: Chest pain Comparison: None Technique: Contiguous helical CT images through the chest was performed the use of intravenous contrast optimized for opacification of the pulmonary arterial tree. Axial, coronal and sagittal reconstructions were reformatted. Using a separate 3-D workstation, 3-D imaging of the pulmonary arteries was also performed. Findings: There is adequate opacification of the pulmonary arterial tree. There is no evidence of pulmonary embolus. Thoracic aorta is normal with no evidence of aneurysm or dissection. Heart size is mildly enlarged. Small pericardial effusion is seen. Small to moderate sized bilateral pleural effusions are present. Lungs are clear. No infiltrates. No pulmonary nodules. Some atelectasis and/or scarring is seen in the lung bases. There is slightly increased density seen throughout the mediastinal fat which is presumably related to fluid/pleural fluid however other etiologies such as diffuse adenopathy cannot be excluded. No acute osseous abnormalities. Degenerative changes are seen throughout the thoracic spine. Impression: No evidence of pulmonary embolus. Thoracic aorta is normal without aneurysm or dissection. Small to moderate-sized bilateral pleural effusions. Bibasilar atelectasis and/or scarring. Otherwise lungs are clear. No infiltrates or nodules. There is slightly increased density seen throughout the mediastinal fat which is presumably related to fluid/pleural fluid however other etiologies such as diffuse adenopathy cannot be excluded.
[2017-03-10 12:00] VITALS: BP 123/54
--- NOTE | 2017-03-10 12:03 | Infectious Diseases Prog Note ---
Assessment/Plan Assessment/Plan A; Aortic valve endocarditis Syncope Allergic drug reaction to Keflex DM type 2 Anemia P: Will continue her already established treatment for endocarditis with Doxycycline (until 06/03/17) , Gentamicin 60mg IV bid (until 03/17/11), IV Vancomycin (until 04/09/17) Subjective ROS Limited/Unobtainable: No Constitutional: Reports: no symptoms Cardiovascular: Reports: no symptoms Gastrointestinal/Abdominal: Reports: no symptoms Genitourinary: Reports: no symptoms Skin: Reports: rash Allergies: Coded Allergies: CEPHALEXIN (Verified Allergy, Intermediate, diffuse maculopapular rash, ) Uncoded Allergies: Baby oil (Allergy, Severe, Itching, 03/08/17) Objective Vital Signs Last 24 Hour Vital Signs Date Time Temp Pulse Resp B/P (MAP) Pulse Ox O2 Delivery O2 Flow Rate FiO2 03/10/17 08:00 109 03/10/17 08:00 98.2 107 16 121/54 94 Room Air 03/10/17 07:55 110 20 Room Air 03/10/17 04:20 98.2 106 20 101/42 94 Nasal Cannula 2.0 03/10/17 04:00 105 03/10/17 00:21 99.3 112 20 106/49 94 Room Air 03/10/17 00:00 117 03/09/17 20:15 98.8 113 20 114/54 94 Room Air 03/09/17 20:00 115 03/09/17 19:52 117 18 Room Air 03/09/17 16:00 113 03/09/17 16:00 99.5 112 20 115/52 96 Room Air 03/09/17 12:00 113 03/09/17 12:00 99.3 112 20 126/51 93 Room Air Height (Feet): 5 Height (Inches): 4.00 Weight (Pounds): 140 General Appearance: no acute distress HEENT: mucous membranes moist Respiratory/Chest: lungs clear Cardiovascular: tachycardia Abdomen: soft, non tender Extremities: no edema Skin: rash, other - generalized maculopapuler rash Neurologic/Psychiatric: alert, oriented x 3, responsive Microbiology Date/Time Source Procedure Growth Status 03/08/17 15:25 Blood Blood Culture - Preliminary NO GROWTH AFTER 24 HOURS Resulted 03/08/17 15:15 Blood Blood Culture - Preliminary NO GROWTH AFTER 24 HOURS Resulted Laboratory Tests Test 03/10/17 06:10 White Blood Count 2.8 K/UL (4.8-10.8) L Red Blood Count 3.03 M/UL (4.20-5.40) L Hemoglobin 8.9 G/DL (12.0-16.0) L Hematocrit 27.3 % (37.0-47.0) L Mean Corpuscular Volume 90 FL (80-99) Mean Corpuscular Hemoglobin 29.4 PG (27.0-31.0) Mean Corpuscular Hemoglobin Concent 32.6 G/DL (32.0-36.0) Red Cell Distribution Width 14.7 % (11.6-14.8) Platelet Count 206 K/UL (150-450) Mean Platelet Volume 6.8 FL (6.5-10.1) Neutrophils (%) (Auto) % (45.0-75.0) Lymphocytes (%) (Auto) % (20.0-45.0) Monocytes (%) (Auto) % (1.0-10.0) Eosinophils (%) (Auto) % (0.0-3.0) Basophils (%) (Auto) % (0.0-2.0) Differential Total Cells Counted 100 Neutrophils % (Manual) 69 % (45-75) Lymphocytes % (Manual) 27 % (20-45) Monocytes % (Manual) 4 % (1-10) Eosinophils % (Manual) 0 % (0-3) Basophils % (Manual) 0 % (0-2) Band Neutrophils 0 % (0-8) Platelet Estimate Adequate Platelet Morphology Normal Hypochromasia 2+ Anisocytosis 1+ Erythrocyte Sedimentation Rate 120 MM/HR (0-30) H Sodium Level 139 MMOL/L (136-145) Potassium Level 3.8 MMOL/L (3.5-5.1) Chloride Level 107 MMOL/L (98-107) Carbon Dioxide Level 24 MMOL/L (21-32) Anion Gap 8 mmol/L (5-15) Blood Urea Nitrogen 15 mg/dL (7-18) Creatinine 0.8 MG/DL (0.55-1.30) Estimat Glomerular Filtration Rate > 60 mL/min (>60) Glucose Level 144 MG/DL (74-106) H Calcium Level 9.2 MG/DL (8.5-10.1) C-Reactive Protein, Quantitative 1.3 mg/dL (0.00-0.90) H Current Medications Medications (Trade) Dose Ordered Sig/[place] Route PRN Reason Start Time Stop Time Status Last Admin Dose Admin Acetaminophen (Tylenol) 650 mg Q4H PRN ORAL For Pain 03/08/17 21:00 04/07/17 20:59 Acetaminophen/ Hydrocodone Bitart ([place] 5/325) 1 tab Q6H PRN ORAL For Moderate to Severe Pain 03/08/17 21:00 03/15/17 20:59 Albuterol Sulfate (Proventil) 2.5 mg Q4H PRN HHN Shortness of Breath 03/08/17 21:00 03/13/17 20:59 Aspirin (Ecotrin) 81 mg DAILY ORAL 03/09/17 09:00 04/08/17 08:59 03/10/17 08:29 Atorvastatin Calcium (Lipitor) 40 mg BEDTIME ORAL 03/08/17 22:30 04/07/17 22:29 03/09/17 21:12 Chlorhexidine Gluconate (Ling-Hex 2%) 1 applic DAILY@2000 TOPIC 03/09/17 20:00 04/08/17 19:59 03/09/17 21:12 Clobetasol Propionate (Temovate) 1 applic TWICE A DAY TOPIC 03/09/17 18:00 04/08/17 17:59 03/10/17 08:30 Diphenhydramine HCl (Benadryl) 25 mg Q6H PRN IVP Itching 03/08/17 22:00 04/07/17 21:59 03/10/17 08:32 Docusate Sodium (Colace) 100 mg TWICE A DAY ORAL 03/09/17 09:00 04/08/17 08:59 03/10/17 08:29 Doxycycline Monohydrate (Vibramycin) 100 mg EVERY 12 HOURS ORAL 03/08/17 22:30 03/15/17 22:29 03/10/17 08:29 Enoxaparin Sodium (Lovenox) 40 mg DAILY SUBQ 03/09/17 13:00 04/08/17 12:59 03/10/17 08:31 Fluoxetine HCl (PROzac) 20 mg DAILY ORAL 03/09/17 09:00 04/08/17 08:59 03/10/17 08:29 Gentamicin Protocol (Gentamicin pharmacy to dose) 1 ea DAILY PRN MISC Per rx protocol 03/09/17 13:00 03/17/17 23:55 Gentamicin Sulfate 60 mg/ Sodium Chloride 56.5 ml @ 110 mls/hr Q12H IVPB 03/09/17 16:00 03/16/17 15:59 03/10/17 04:26 Metformin HCl (Glucophage) 850 mg BID ORAL 03/09/17 09:00 04/08/17 08:59 03/09/17 18:05 Olanzapine (ZyPREXA) 5 mg BEDTIME ORAL 03/08/17 22:30 04/07/17 22:29 03/09/17 21:12 Vancomycin HCl (Vanco rx to dose) 1 ea DAILY PRN MISC Per rx protocol 03/09/17 13:00 04/08/17 12:59 Vancomycin/Sodium Chloride 250 ml @ 166.667 mls/hr Q12H IVPB 03/10/17 02:00 03/15/17 01:59 03/10/17 02:25 LISA ACHARYA Mar 10, 2017 12:03
[2017-03-10] MEDS ORDERED: Tubing IV Secondary IV ONE (15:52)
[2017-03-10 16:00] VITALS: BP 123/61
--- NOTE | 2017-03-10 17:13 | Cardiology Progress Note ---
Assessment/Plan Assessment/Plan 1. Sinus tachycardia, ? acute AR, if persistent would have to repeat NATHAN. 2. Possible eccentric AR, cannot assess severity by echo. 3. 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 4. Bilateral pleural effusion 5. Possible syncopal event, normal EF, PE ruled out, ?neurocardiogenic ? hypovolemic. Subjective Subjective Sinus tachycardia at 110. Objective Last 24 Hour Vital Signs Date Time Temp Pulse Resp B/P (MAP) Pulse Ox O2 Delivery O2 Flow Rate FiO2 03/10/17 12:00 97.2 103 18 123/54 97 Room Air 03/10/17 12:00 111 03/10/17 08:00 109 03/10/17 08:00 98.2 107 16 121/54 94 Room Air 03/10/17 07:55 110 20 Room Air 03/10/17 04:20 98.2 106 20 101/42 94 Nasal Cannula 2.0 03/10/17 04:00 105 03/10/17 00:21 99.3 112 20 106/49 94 Room Air 03/10/17 00:00 117 03/09/17 20:15 98.8 113 20 114/54 94 Room Air 03/09/17 20:00 115 03/09/17 19:52 117 18 Room Air Intake and Output 03/10/17 03/11/17 18:59 06:59 # Bowel Movements 1 2D Echo: LVEF 50%, Poss eccentric AR ?severity,RVSP 42 mmHg, Pseudo-normal LV physio Laboratory Tests Test 03/10/17 06:10 03/10/17 15:30 White Blood Count 2.8 K/UL (4.8-10.8) L Red Blood Count 3.03 M/UL (4.20-5.40) L Hemoglobin 8.9 G/DL (12.0-16.0) L Hematocrit 27.3 % (37.0-47.0) L Mean Corpuscular Volume 90 FL (80-99) Mean Corpuscular Hemoglobin 29.4 PG (27.0-31.0) Mean Corpuscular Hemoglobin Concent 32.6 G/DL (32.0-36.0) Red Cell Distribution Width 14.7 % (11.6-14.8) Platelet Count 206 K/UL (150-450) Mean Platelet Volume 6.8 FL (6.5-10.1) Neutrophils (%) (Auto) % (45.0-75.0) Lymphocytes (%) (Auto) % (20.0-45.0) Monocytes (%) (Auto) % (1.0-10.0) Eosinophils (%) (Auto) % (0.0-3.0) Basophils (%) (Auto) % (0.0-2.0) Differential Total Cells Counted 100 Neutrophils % (Manual) 69 % (45-75) Lymphocytes % (Manual) 27 % (20-45) Monocytes % (Manual) 4 % (1-10) Eosinophils % (Manual) 0 % (0-3) Basophils % (Manual) 0 % (0-2) Band Neutrophils 0 % (0-8) Platelet Estimate Adequate Platelet Morphology Normal Hypochromasia 2+ Anisocytosis 1+ Erythrocyte Sedimentation Rate 120 MM/HR (0-30) H Sodium Level 139 MMOL/L (136-145) Potassium Level 3.8 MMOL/L (3.5-5.1) Chloride Level 107 MMOL/L (98-107) Carbon Dioxide Level 24 MMOL/L (21-32) Anion Gap 8 mmol/L (5-15) Blood Urea Nitrogen 15 mg/dL (7-18) Creatinine 0.8 MG/DL (0.55-1.30) Estimat Glomerular Filtration Rate > 60 mL/min (>60) Glucose Level 144 MG/DL (74-106) H Calcium Level 9.2 MG/DL (8.5-10.1) C-Reactive Protein, Quantitative 1.3 mg/dL (0.00-0.90) H Gentamicin Level Trough 0.7 ug/mL (0.3-2.0) Microbiology Date/Time Source Procedure Growth Status 03/08/17 15:25 Blood Blood Culture - Preliminary NO GROWTH AFTER 24 HOURS Resulted 03/08/17 15:15 Blood Blood Culture - Preliminary NO GROWTH AFTER 24 HOURS Resulted Objective GENERAL: The patient is a very pleasant 66-year-old female, in no apparent respiratory distress, alert and oriented x4. HEENT: Atraumatic and normocephalic. ENT, pupils are equal, round, and reactive to light and accommodation. Extraocular muscles are intact. NECK: JVP less than 5 cm. No carotid bruits. Carotid upstrokes 2+ bilaterally. CARDIOVASCULAR: Normal S1 and S2. Regular rate and rhythm. No murmurs, gallops, or rubs. PMI is at fourth intercostal space in the midclavicular line. LUNGS: Clear to auscultation bilaterally. ABDOMEN: Soft, nontender, and nondistended. No hepatosplenomegaly. Positive bowel sounds. EXTREMITIES: No evidence of edema, clubbing, or cyanosis. ARMANDO BLUE Mar 10, 2017 17:13
[2017-03-10] MEDS ORDERED: Clobetasol Cream 0.05% 15gm TOPIC SCH (18:00)
[2017-03-10 20:00] VITALS: BP 110/50
[2017-03-10] MEDS: Dyna-Hex 2% Top Sol 2oz TOPIC SCH (20:19)
[2017-03-10] MEDS: Atorvastatin 20mg tab ORAL SCH (20:53)
[2017-03-11] VITALS: BP 111/48
[2017-03-11] MEDS: Vancomycin 750mg/NS 250ml IVPB SCH ×3 (02:22→23:02)
[2017-03-11 04:00] VITALS: BP 109/46
[2017-03-11] MEDS: GENTAMICIN IVPB SCH ×2 (04:13→16:47)
[2017-03-11] MEDS: NS IVPB SCH ×2 (04:13→16:47)
[2017-03-11 06:55] LABS: INR 1.1 (0.9-1.1); PROTHROMBIN TIME 11.3 SEC (9.30-11.50)
[2017-03-11 06:58] LABS: MEAN CORPUSCULAR HEMOGLOBIN 28.9 PG (27.0-31.0); MEAN CORPUSCULAR VOLUME 90 FL (80-99); MEAN PLATELET VOLUME 6.7 FL (6.5-10.1); PLATELET COUNT 190 K/UL (150-450); RED BLOOD COUNT 2.95 M/UL (4.20-5.40)
[2017-03-11 07:04] LABS: ALANINE AMINOTRANSFERASE 18 U/L (12-78); ALBUMIN/GLOBULIN RATIO 0.6 (1.0-2.7); ANION GAP 8 mmol/L (5-15); ASPARTATE AMINO TRANSFERASE 23 U/L (15-37); CALCIUM 8.8 MG/DL (8.5-10.1); CARBON DIOXIDE 23 MMOL/L (21-32); CHLORIDE 107 MMOL/L (98-107); CREATININE 0.8 MG/DL (0.55-1.30); GLOMERULAR FILTRATION RATE > 60 mL/min (>60); IRON 17 ug/dL (50-175); SODIUM 138 MMOL/L (136-145); TOTAL IRON BINDING CAPACITY 287 ug/dL (250-450); TOTAL PROTEIN 7.4 G/DL (6.4-8.2)
[2017-03-11 07:05] LABS: LACTATE DEHYDROGENASE 179 U/L (81-234)
[2017-03-11 07:32] LABS: FOLIC ACID 11.1 NG/ML (3.1-17.5)
[2017-03-11 08:00] VITALS: BP 129/60
[2017-03-11 08:40] LABS: ANISOCYTOSIS 1+; BAND NEUTROPHILS % (MANUAL) 0 % (0-8); BASOPHILS % (MANUAL) 0 % (0-2); EOSINOPHILS % (MANUAL) 0 % (0-3); HYPOCHROMASIA 1+; LYMPHOCYTES % (MANUAL) 13 % (20-45); NEUTROPHILS % (MANUAL) 80 % (45-75); PLATELET ESTIMATE ADEQUATE; PLATELET MORPHOLOGY NORMAL; TOTAL CELLS COUNTED 100
[2017-03-11 08:55] LABS: ERYTHROCYTE SEDIMENTATION RATE 119 MM/HR (0-30); PATH BLOOD SMEAR/OMC SENT TO PATHOLOGIST
[2017-03-11] MEDS: Aspirin EC 81mg tab ORAL SCH (09:29)
[2017-03-11] MEDS: Enoxaparin 40mg Inj SUBQ SCH (09:30)
[2017-03-11] MEDS: Clobetasol Cream 0.05% 15gm TOPIC SCH ×2 (09:31→20:51)
[2017-03-11] MEDS: Docusate 100mg cap ORAL SCH ×2 (09:31→18:01)
[2017-03-11 10:49] LABS: RETICULOCYTE COUNT 0.9 % (0.0-2.0)
--- NOTE | 2017-03-11 11:32 | Infectious Diseases Prog Note ---
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), on tx -Afebrile, no leukocytosis - 2D Echo : Aortic Veg + HLD OA spinal stenosis DM2 Bipolar disorder Spondylolisthesis Asthma Plan: -Will continue her already established treatment for endocarditis with Doxycycline (untill 06/03/17) ,Gentamycin 60mg IV bid (untill 03/17/11), IV Vancomycin (until 04/09/17) -monitor platelets, Cr -typically bartonella endocarditis consist of Doxy for 6-12 weeks and Genta for 2 weeks; however patient has been managed by another ID physician as an outpatient E -2 sets pf Bcx -bartonella serologies -ESR/CRP am (for baseine) -f/u cx -Monitor CBC/BMP, temperatures Subjective Constitutional: Denies: no symptoms, fever, chills, fatigue, anorexia, drenching sweats, other Allergies: Coded Allergies: CEPHALEXIN (Verified Allergy, Intermediate, diffuse maculopapular rash, ) Uncoded Allergies: Baby oil (Allergy, Severe, Itching, 03/08/17) Subjective pt is gone for PICC placement Objective Vital Signs Last 24 Hour Vital Signs Date Time Temp Pulse Resp B/P (MAP) Pulse Ox O2 Delivery O2 Flow Rate FiO2 03/11/17 08:00 98.0 112 20 129/60 93 Room Air 03/11/17 07:00 109 20 Room Air 03/11/17 04:00 98.4 112 25 109/46 95 Room Air 03/11/17 03:41 104 03/11/17 00:00 97.7 112 17 111/48 96 Room Air 03/11/17 00:00 109 03/10/17 20:17 115 20 Room Air 03/10/17 20:00 118 03/10/17 20:00 96.5 112 17 110/50 97 Room Air 03/10/17 16:00 109 03/10/17 16:00 97.5 113 16 123/61 94 Room Air 03/10/17 12:00 97.2 103 18 123/54 97 Room Air 03/10/17 12:00 111 Height (Feet): 5 Height (Inches): 4.00 Weight (Pounds): 140 HEENT: anicteric Respiratory/Chest: normal breath sounds Cardiovascular: no gallop/murmur Abdomen: non distended Microbiology Date/Time Source Procedure Growth Status 03/08/17 15:25 Blood Blood Culture - Preliminary NO GROWTH AFTER 48 HOURS Resulted 03/08/17 15:15 Blood Blood Culture - Preliminary NO GROWTH AFTER 48 HOURS Resulted 03/09/17 03:00 Nasal Nares MRSA Culture - Final NO METHICILLIN RESISTANT STAPH AUREUS... Complete 03/09/17 03:00 Rectum VRE Culture - Final NO VANCOMYCIN RESISTANT ENTEROCOCCUS ... Complete Laboratory Tests Test 03/10/17 15:30 03/10/17 17:00 03/10/17 20:15 03/11/17 06:00 Gentamicin Level Trough 0.7 ug/mL (0.3-2.0) Gentamicin Level Peak 2.1 ug/mL (4.0-10.0) L Stool Occult Blood Negative (NEGATIVE) White Blood Count 3.0 K/UL (4.8-10.8) L Red Blood Count 2.95 M/UL (4.20-5.40) L Hemoglobin 8.5 G/DL (12.0-16.0) L Hematocrit 26.6 % (37.0-47.0) L Mean Corpuscular Volume 90 FL (80-99) Mean Corpuscular Hemoglobin 28.9 PG (27.0-31.0) Mean Corpuscular Hemoglobin Concent 32.0 G/DL (32.0-36.0) Red Cell Distribution Width 15.0 % (11.6-14.8) H Platelet Count 190 K/UL (150-450) Mean Platelet Volume 6.7 FL (6.5-10.1) Neutrophils (%) (Auto) % (45.0-75.0) Lymphocytes (%) (Auto) % (20.0-45.0) Monocytes (%) (Auto) % (1.0-10.0) Eosinophils (%) (Auto) % (0.0-3.0) Basophils (%) (Auto) % (0.0-2.0) Differential Total Cells Counted 100 Neutrophils % (Manual) 80 % (45-75) H Lymphocytes % (Manual) 13 % (20-45) L Monocytes % (Manual) 7 % (1-10) Eosinophils % (Manual) 0 % (0-3) Basophils % (Manual) 0 % (0-2) Band Neutrophils 0 % (0-8) Platelet Estimate Adequate Platelet Morphology Normal Hypochromasia 1+ Anisocytosis 1+ Erythrocyte Sedimentation Rate 119 MM/HR (0-30) H Reticulocyte Count 0.9 % (0.0-2.0) Prothrombin Time 11.3 SEC (9.30-11.50) Prothromb Time International Ratio 1.1 (0.9-1.1) Activated Partial Thromboplast Time 29 SEC (23-33) Sodium Level 138 MMOL/L (136-145) Potassium Level 4.0 MMOL/L (3.5-5.1) Chloride Level 107 MMOL/L (98-107) Carbon Dioxide Level 23 MMOL/L (21-32) Anion Gap 8 mmol/L (5-15) Blood Urea Nitrogen 16 mg/dL (7-18) Creatinine 0.8 MG/DL (0.55-1.30) Estimat Glomerular Filtration Rate > 60 mL/min (>60) Glucose Level 149 MG/DL (74-106) H Calcium Level 8.8 MG/DL (8.5-10.1) Iron Level 17 ug/dL (50-175) L Total Iron Binding Capacity 287 ug/dL (250-450) Percent Iron Saturation 6 % (15-50) L Unsaturated Iron Binding 270 ug/dL (112-346) Total Bilirubin 0.2 MG/DL (0.2-1.0) Aspartate Amino Transf (AST/SGOT) 23 U/L (15-37) Alanine Aminotransferase (ALT/SGPT) 18 U/L (12-78) Alkaline Phosphatase 98 U/L (46-116) Lactate Dehydrogenase 179 U/L (81-234) Troponin I 0.233 ng/mL (0.000-0.056) Pro-B-Type Natriuretic Peptide 2905 pg/mL (0-125) H Total Protein 7.4 G/DL (6.4-8.2) Albumin 2.7 G/DL (3.4-5.0) L Globulin 4.7 g/dL Albumin/Globulin Ratio 0.6 (1.0-2.7) L Vitamin B12 Level 257 PG/ML (193-986) Folate 11.1 NG/ML (3.1-17.5) Current Medications Medications (Trade) Dose Ordered Sig/[place] Route PRN Reason Start Time Stop Time Status Last Admin Dose Admin Acetaminophen (Tylenol) 650 mg Q4H PRN ORAL For Pain 03/08/17 21:00 04/07/17 20:59 Acetaminophen/ Hydrocodone Bitart ([place] 5/325) 1 tab Q6H PRN ORAL For Moderate to Severe Pain 03/08/17 21:00 03/15/17 20:59 Albuterol Sulfate (Proventil) 2.5 mg Q4H PRN HHN Shortness of Breath 03/08/17 21:00 03/13/17 20:59 Aspirin (Ecotrin) 81 mg DAILY ORAL 03/09/17 09:00 04/08/17 08:59 03/11/17 09:29 Atorvastatin Calcium (Lipitor) 40 mg BEDTIME ORAL 03/08/17 22:30 04/07/17 22:29 03/10/17 20:53 Chlorhexidine Gluconate (Ling-Hex 2%) 1 applic DAILY@2000 TOPIC 03/09/17 20:00 04/08/17 19:59 03/10/17 20:19 Clobetasol Propionate (Temovate) 1 applic Q12HR TOPIC 03/10/17 21:00 04/09/17 20:59 03/11/17 09:31 Diphenhydramine HCl (Benadryl) 25 mg Q6H PRN IVP Itching 03/08/17 22:00 04/07/17 21:59 03/10/17 16:37 Docusate Sodium (Colace) 100 mg TWICE A DAY ORAL 03/09/17 09:00 04/08/17 08:59 03/11/17 09:31 Doxycycline Monohydrate (Vibramycin) 100 mg EVERY 12 HOURS ORAL 03/08/17 22:30 03/15/17 22:29 03/11/17 09:30 Enoxaparin Sodium (Lovenox) 40 mg DAILY SUBQ 03/09/17 13:00 04/08/17 12:59 03/11/17 09:30 Fluoxetine HCl (PROzac) 20 mg DAILY ORAL 03/09/17 09:00 04/08/17 08:59 03/11/17 09:31 Gentamicin Protocol (Gentamicin pharmacy to dose) 1 ea DAILY PRN MISC Per rx protocol 03/09/17 13:00 03/17/17 23:55 Gentamicin Sulfate 60 mg/ Sodium Chloride 56.5 ml @ 110 mls/hr Q12H IVPB 03/09/17 16:00 03/16/17 15:59 03/11/17 04:13 Metformin HCl (Glucophage) 850 mg BID ORAL 03/09/17 09:00 04/08/17 08:59 03/09/17 18:05 Olanzapine (ZyPREXA) 5 mg BEDTIME ORAL 03/08/17 22:30 04/07/17 22:29 03/10/17 20:53 Vancomycin HCl (Vanco rx to dose) 1 ea DAILY PRN MISC Per rx protocol 03/09/17 13:00 04/08/17 12:59 Vancomycin/Sodium Chloride 250 ml @ 166.667 mls/hr Q12H IVPB 03/10/17 02:00 03/15/17 01:59 03/11/17 02:22 ALYSSA REYES M.D. Mar 11, 2017 11:32
--- NOTE | 2017-03-11 11:38 | Pulmonology Progress Note ---
Assessment/Plan Problems: (1) Cardiomegaly (2) Syncope (3) Anemia (4) Endocarditis Assessment/Plan CT chest reviewed continue current abx for endocarditis NATHAN scheduled keep in teli Subjective ROS Limited/Unobtainable: No Constitutional: Reports: no symptoms Respiratory: Reports: no symptoms, wheezing Gastrointestinal/Abdominal: Reports: no symptoms Allergies: Coded Allergies: CEPHALEXIN (Verified Allergy, Intermediate, diffuse maculopapular rash, ) Uncoded Allergies: Baby oil (Allergy, Severe, Itching, 03/08/17) Objective Last 24 Hour Vital Signs Date Time Temp Pulse Resp B/P (MAP) Pulse Ox O2 Delivery O2 Flow Rate FiO2 03/11/17 08:00 98.0 112 20 129/60 93 Room Air 03/11/17 08:00 110 03/11/17 07:00 109 20 Room Air 03/11/17 04:00 98.4 112 25 109/46 95 Room Air 03/11/17 03:41 104 03/11/17 00:00 97.7 112 17 111/48 96 Room Air 03/11/17 00:00 109 03/10/17 20:17 115 20 Room Air 03/10/17 20:00 118 03/10/17 20:00 96.5 112 17 110/50 97 Room Air 03/10/17 16:00 109 03/10/17 16:00 97.5 113 16 123/61 94 Room Air 03/10/17 12:00 97.2 103 18 123/54 97 Room Air 03/10/17 12:00 111 Intake and Output 03/11/17 03/12/17 19:00 07:00 # Bowel Movements 1 General Appearance: WD/WN, no acute distress HEENT: normocephalic Respiratory/Chest: chest wall non-tender, normal breath sounds Cardiovascular: normal peripheral pulses, normal rate Abdomen: normal bowel sounds, no organomegaly Microbiology Date/Time Source Procedure Growth Status 03/08/17 15:25 Blood Blood Culture - Preliminary NO GROWTH AFTER 48 HOURS Resulted 03/08/17 15:15 Blood Blood Culture - Preliminary NO GROWTH AFTER 48 HOURS Resulted 03/09/17 03:00 Nasal Nares MRSA Culture - Final NO METHICILLIN RESISTANT STAPH AUREUS... Complete 03/09/17 03:00 Rectum VRE Culture - Final NO VANCOMYCIN RESISTANT ENTEROCOCCUS ... Complete Laboratory Tests 03/10/17 15:30: Gentamicin Level Trough 0.7 03/10/17 17:00: Gentamicin Level Peak 2.1L 03/10/17 20:15: Stool Occult Blood Negative 03/11/17 06:00: White Blood Count 3.0L, Red Blood Count 2.95L, Hemoglobin 8.5L, Hematocrit 26.6L , Mean Corpuscular Volume 90, Mean Corpuscular Hemoglobin 28.9, Mean Corpuscular Hemoglobin Concent 32.0, Red Cell Distribution Width 15.0H, Platelet Count 190, Mean Platelet Volume 6.7, Neutrophils (%) (Auto) , Lymphocytes (%) (Auto) , Monocytes (%) (Auto) , Eosinophils (%) (Auto) , Basophils (%) (Auto) , Differential Total Cells Counted 100, Neutrophils % ( Manual) 80H, Lymphocytes % (Manual) 13L, Monocytes % (Manual) 7, Eosinophils % ( Manual) 0, Basophils % (Manual) 0, Band Neutrophils 0, Platelet Estimate Adequate, Platelet Morphology Normal, Hypochromasia 1+, Anisocytosis 1+, Erythrocyte Sedimentation Rate 119H, Reticulocyte Count 0.9, Prothrombin Time 11.3, Prothromb Time International Ratio 1.1, Activated Partial Thromboplast Time 29, Sodium Level 138, Potassium Level 4.0, Chloride Level 107, Carbon Dioxide Level 23, Anion Gap 8, Blood Urea Nitrogen 16, Creatinine 0.8, Estimat Glomerular Filtration Rate > 60, Glucose Level 149H, Calcium Level 8.8, Iron Level 17L, Total Iron Binding Capacity 287, Percent Iron Saturation 6L, Unsaturated Iron Binding 270, Total Bilirubin 0.2, Aspartate Amino Transf (AST/ SGOT) 23, Alanine Aminotransferase (ALT/SGPT) 18, Alkaline Phosphatase 98, Lactate Dehydrogenase 179, Troponin I 0.233H, Pro-B-Type Natriuretic Peptide 2905H, Total Protein 7.4, Albumin 2.7L, Globulin 4.7, Albumin/Globulin Ratio 0.6L, Vitamin B12 Level 257, Folate 11.1 Current Medications Medications (Trade) Dose Ordered Sig/[place] Route PRN Reason Start Time Stop Time Status Last Admin Dose Admin Acetaminophen (Tylenol) 650 mg Q4H PRN ORAL For Pain 03/08/17 21:00 04/07/17 20:59 Acetaminophen/ Hydrocodone Bitart ([place] 5/325) 1 tab Q6H PRN ORAL For Moderate to Severe Pain 03/08/17 21:00 03/15/17 20:59 Albuterol Sulfate (Proventil) 2.5 mg Q4H PRN HHN Shortness of Breath 03/08/17 21:00 03/13/17 20:59 Aspirin (Ecotrin) 81 mg DAILY ORAL 03/09/17 09:00 04/08/17 08:59 03/11/17 09:29 Atorvastatin Calcium (Lipitor) 40 mg BEDTIME ORAL 03/08/17 22:30 04/07/17 22:29 03/10/17 20:53 Chlorhexidine Gluconate (Ling-Hex 2%) 1 applic DAILY@1999 TOPIC 03/09/17 20:00 04/08/17 19:59 03/10/17 20:19 Clobetasol Propionate (Temovate) 1 applic Q12HR TOPIC 03/10/17 21:00 04/09/17 20:59 03/11/17 09:31 Diphenhydramine HCl (Benadryl) 25 mg Q6H PRN IVP Itching 03/08/17 22:00 04/07/17 21:59 03/10/17 16:37 Docusate Sodium (Colace) 100 mg TWICE A DAY ORAL 03/09/17 09:00 04/08/17 08:59 03/11/17 09:31 Doxycycline Monohydrate (Vibramycin) 100 mg EVERY 12 HOURS ORAL 03/08/17 22:30 03/15/17 22:29 03/11/17 09:30 Enoxaparin Sodium (Lovenox) 40 mg DAILY SUBQ 03/09/17 13:00 04/08/17 12:59 03/11/17 09:30 Fluoxetine HCl (PROzac) 20 mg DAILY ORAL 03/09/17 09:00 04/08/17 08:59 03/11/17 09:31 Gentamicin Protocol (Gentamicin pharmacy to dose) 1 ea DAILY PRN MISC Per rx protocol 03/09/17 13:00 03/17/17 23:55 Gentamicin Sulfate 60 mg/ Sodium Chloride 56.5 ml @ 110 mls/hr Q12H IVPB 03/09/17 16:00 03/16/17 15:59 03/11/17 04:13 Metformin HCl (Glucophage) 850 mg BID ORAL 03/09/17 09:00 04/08/17 08:59 03/09/17 18:05 Olanzapine (ZyPREXA) 5 mg BEDTIME ORAL 03/08/17 22:30 04/07/17 22:29 03/10/17 20:53 Vancomycin HCl (Vanco rx to dose) 1 ea DAILY PRN MISC Per rx protocol 03/09/17 13:00 04/08/17 12:59 Vancomycin/Sodium Chloride 250 ml @ 166.667 mls/hr Q12H IVPB 03/10/17 02:00 03/15/17 01:59 03/11/17 02:22 DOMO MULTANI Mar 11, 2017 11:38
[2017-03-11 12:00] VITALS: BP 127/63
--- NOTE | 2017-03-11 12:24 | Diagnostic Imaging Report ---
Indication: DYSPNEA Technique: One view of the chest Comparison: 03/08/2017 Findings: There is increased interstitial edema. No focal airspace consolidation. No definite effusions. Heart remains enlarged. Right arm PICC remains Impression: Increasing bilateral interstitial edema, over 3 days
--- NOTE | 2017-03-11 15:01 | General Progress Note ---
Assessment/Plan Status: stable Assessment/Plan 1. Acute encephlopathy 2. Sinus Tachy cardia 3. Pleural effusion 4. Pericardial effusion 5. Endocarditis. 6. Iatrogenic skin rashes 4. Diabetes type 2. 5. Hypertension. 6. Hypercholesterolemia. 7. Asthma. 8. Osteoarthritis of the bilateral knees. 9. Chronic low back pain. 10. GI-DVT prophylaxia Plan: will proceed with NATHAN aviva-Valvular complications merits additional w/u Subjective ROS Limited/Unobtainable: No Constitutional: Reports: no symptoms HEENT: Reports: no symptoms Cardiovascular: Reports: no symptoms Respiratory: Reports: no symptoms Allergies: Coded Allergies: CEPHALEXIN (Verified Allergy, Intermediate, diffuse maculopapular rash, ) Uncoded Allergies: Baby oil (Allergy, Severe, Itching, 03/08/17) Objective Last 24 Hour Vital Signs Date Time Temp Pulse Resp B/P (MAP) Pulse Ox O2 Delivery O2 Flow Rate FiO2 03/11/17 08:00 98.0 112 20 129/60 93 Room Air 03/11/17 08:00 110 03/11/17 07:00 109 20 Room Air 03/11/17 04:00 98.4 112 25 109/46 95 Room Air 03/11/17 03:41 104 03/11/17 00:00 97.7 112 17 111/48 96 Room Air 03/11/17 00:00 109 03/10/17 20:17 115 20 Room Air 03/10/17 20:00 118 03/10/17 20:00 96.5 112 17 110/50 97 Room Air 03/10/17 16:00 109 03/10/17 16:00 97.5 113 16 123/61 94 Room Air Intake and Output 03/11/17 03/12/17 19:00 07:00 # Bowel Movements 1 Laboratory Tests 03/10/17 15:30: Gentamicin Level Trough 0.7 03/10/17 17:00: Gentamicin Level Peak 2.1L 03/10/17 20:15: Stool Occult Blood Negative 03/11/17 06:00: White Blood Count 3.0L, Red Blood Count 2.95L, Hemoglobin 8.5L, Hematocrit 26.6L , Mean Corpuscular Volume 90, Mean Corpuscular Hemoglobin 28.9, Mean Corpuscular Hemoglobin Concent 32.0, Red Cell Distribution Width 15.0H, Platelet Count 190, Mean Platelet Volume 6.7, Neutrophils (%) (Auto) , Lymphocytes (%) (Auto) , Monocytes (%) (Auto) , Eosinophils (%) (Auto) , Basophils (%) (Auto) , Differential Total Cells Counted 100, Neutrophils % ( Manual) 80H, Lymphocytes % (Manual) 13L, Monocytes % (Manual) 7, Eosinophils % ( Manual) 0, Basophils % (Manual) 0, Band Neutrophils 0, Platelet Estimate Adequate, Platelet Morphology Normal, Hypochromasia 1+, Anisocytosis 1+, Erythrocyte Sedimentation Rate 119H, Reticulocyte Count 0.9, Prothrombin Time 11.3, Prothromb Time International Ratio 1.1, Activated Partial Thromboplast Time 29, Sodium Level 138, Potassium Level 4.0, Chloride Level 107, Carbon Dioxide Level 23, Anion Gap 8, Blood Urea Nitrogen 16, Creatinine 0.8, Estimat Glomerular Filtration Rate > 60, Glucose Level 149H, Calcium Level 8.8, Iron Level 17L, Total Iron Binding Capacity 287, Percent Iron Saturation 6L, Unsaturated Iron Binding 270, Total Bilirubin 0.2, Aspartate Amino Transf (AST/ SGOT) 23, Alanine Aminotransferase (ALT/SGPT) 18, Alkaline Phosphatase 98, Lactate Dehydrogenase 179, Troponin I 0.233H, Pro-B-Type Natriuretic Peptide 2905H, Total Protein 7.4, Albumin 2.7L, Globulin 4.7, Albumin/Globulin Ratio 0.6L, Vitamin B12 Level 257, Folate 11.1 03/11/17 13:05: Vancomycin Level Trough 9.2 Height (Feet): 5 Height (Inches): 4.00 Weight (Pounds): 140 General Appearance: WD/WN EENT: PERRL/EOMI Neck: non-tender Cardiovascular: systolic murmur Respiratory/Chest: lungs clear Abdomen: soft Extremities: non-tender Neurologic: tight rope walker II-XII grossly normal Carolee Anderson MD Mar 11, 2017 15:01
--- NOTE | 2017-03-11 15:58 | Diagnostic Imaging Report ---
Indications: Needs long-term IV access Technique: Ultrasound confirms patent compressible left basilic vein. Total sterile technique, including sterile probe cover and sterile gel, hat, mask,, sterile gown, large sterile drape, and preparation with 2% chlorhexidine utilized. Local anesthesia with 1% lidocaine. Under real-time ultrasound guidance, puncture basilic vein using 21-gauge needle, documented and archived, passage 0.018 guidewire under direct fluoroscopy, which was used to determine appropriate catheter length, exchange for 5 [place] peel-away sheath. 5 [place] Bard dual-lumen power PICC cut to 45 cm. It was inserted through the peel-away sheath. Peel-away sheath and guidewire removed. Catheter fixed to the skin. Both catheter ports aspirated and flushed. Patient tolerated procedure well, without immediate complication. Digital radiograph documents satisfactory catheter tip position, at the cavoatrial junction. Total fluoroscopy time 0.8 minutes. Total dose area product 24 dGycm2 Impression: Successful placement of PICC under sonographic and fluoroscopic guidance, as described above.
[2017-03-11 16:00] VITALS: BP 110/50
[2017-03-11 20:35] VITALS: BP 115/55
[2017-03-11] MEDS: Atorvastatin 20mg tab ORAL SCH (20:40)
--- NOTE | 2017-03-11 20:45 | Diagnostic Imaging Report ---
APPROVED REPORT CPT Code: 23611 Vascular Symptoms Dizziness and Vertigo CAROTID (BILATERAL) - Imaging reveals no significant plaque within the right and left extracranial carotid arteries. The Doppler spectral flow analysis is within normal limits throughout the extracranial carotid arteries bilaterally. VERTEBRAL- The vertebral arteries are within normal limits.
[2017-03-11] MEDS: Dyna-Hex 2% Top Sol 2oz TOPIC SCH (20:50)
--- NOTE | 2017-03-11 23:15 | Cardiology Progress Note ---
Assessment/Plan Assessment/Plan 1. Sinus tachycardia, probably heart failure due to valvular CM, ? acute AR, NATHAN for Saturday at 7:30 am. 2. Possible eccentric AR, cannot assess severity by TTE, will delineate more with NATHAN. 3. 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 4. Bilateral pleural effusion 5. Possible syncopal event, normal EF, PE ruled out. Subjective Subjective Remains to be holding sinus tachycardia at ~110. Denies SOB! Objective Last 24 Hour Vital Signs Date Time Temp Pulse Resp B/P (MAP) Pulse Ox O2 Delivery O2 Flow Rate FiO2 03/11/17 20:35 97.5 109 18 115/55 98 Room Air 03/11/17 19:30 110 20 Room Air 21 03/11/17 16:00 98.6 109 21 110/50 93 Nasal Cannula 2.0 03/11/17 16:00 109 03/11/17 12:00 97.9 108 20 127/63 93 Room Air 03/11/17 12:00 114 03/11/17 08:00 98.0 112 20 129/60 93 Room Air 03/11/17 08:00 110 03/11/17 07:00 109 20 Room Air 03/11/17 04:00 98.4 112 25 109/46 95 Room Air 03/11/17 03:41 104 03/11/17 00:00 97.7 112 17 111/48 96 Room Air 03/11/17 00:00 109 Intake and Output 03/11/17 03/12/17 19:00 07:00 Intake Total 869.834 ml Balance 869.834 ml Intake Oral 480 ml IV Total 389.834 ml # Bowel Movements 1 Laboratory Tests Test 03/11/17 06:00 03/11/17 13:05 White Blood Count 3.0 K/UL (4.8-10.8) L Red Blood Count 2.95 M/UL (4.20-5.40) L Hemoglobin 8.5 G/DL (12.0-16.0) L Hematocrit 26.6 % (37.0-47.0) L Mean Corpuscular Volume 90 FL (80-99) Mean Corpuscular Hemoglobin 28.9 PG (27.0-31.0) Mean Corpuscular Hemoglobin Concent 32.0 G/DL (32.0-36.0) Red Cell Distribution Width 15.0 % (11.6-14.8) H Platelet Count 190 K/UL (150-450) Mean Platelet Volume 6.7 FL (6.5-10.1) Neutrophils (%) (Auto) % (45.0-75.0) Lymphocytes (%) (Auto) % (20.0-45.0) Monocytes (%) (Auto) % (1.0-10.0) Eosinophils (%) (Auto) % (0.0-3.0) Basophils (%) (Auto) % (0.0-2.0) Differential Total Cells Counted 100 Neutrophils % (Manual) 80 % (45-75) H Lymphocytes % (Manual) 13 % (20-45) L Monocytes % (Manual) 7 % (1-10) Eosinophils % (Manual) 0 % (0-3) Basophils % (Manual) 0 % (0-2) Band Neutrophils 0 % (0-8) Platelet Estimate Adequate Platelet Morphology Normal Hypochromasia 1+ Anisocytosis 1+ Erythrocyte Sedimentation Rate 119 MM/HR (0-30) H Reticulocyte Count 0.9 % (0.0-2.0) Prothrombin Time 11.3 SEC (9.30-11.50) Prothromb Time International Ratio 1.1 (0.9-1.1) Activated Partial Thromboplast Time 29 SEC (23-33) Sodium Level 138 MMOL/L (136-145) Potassium Level 4.0 MMOL/L (3.5-5.1) Chloride Level 107 MMOL/L (98-107) Carbon Dioxide Level 23 MMOL/L (21-32) Anion Gap 8 mmol/L (5-15) Blood Urea Nitrogen 16 mg/dL (7-18) Creatinine 0.8 MG/DL (0.55-1.30) Estimat Glomerular Filtration Rate > 60 mL/min (>60) Glucose Level 149 MG/DL (74-106) H Calcium Level 8.8 MG/DL (8.5-10.1) Iron Level 17 ug/dL (50-175) L Total Iron Binding Capacity 287 ug/dL (250-450) Percent Iron Saturation 6 % (15-50) L Unsaturated Iron Binding 270 ug/dL (112-346) Total Bilirubin 0.2 MG/DL (0.2-1.0) Aspartate Amino Transf (AST/SGOT) 23 U/L (15-37) Alanine Aminotransferase (ALT/SGPT) 18 U/L (12-78) Alkaline Phosphatase 98 U/L (46-116) Lactate Dehydrogenase 179 U/L (81-234) Troponin I 0.233 ng/mL (0.000-0.056) Pro-B-Type Natriuretic Peptide 2905 pg/mL (0-125) H Total Protein 7.4 G/DL (6.4-8.2) Albumin 2.7 G/DL (3.4-5.0) L Globulin 4.7 g/dL Albumin/Globulin Ratio 0.6 (1.0-2.7) L Vitamin B12 Level 257 PG/ML (193-986) Folate 11.1 NG/ML (3.1-17.5) Vancomycin Level Trough 9.2 ug/mL (5.0-12.0) Microbiology Date/Time Source Procedure Growth Status 03/09/17 03:00 Nasal Nares MRSA Culture - Final NO METHICILLIN RESISTANT STAPH AUREUS... Complete 03/09/17 03:00 Rectum VRE Culture - Final NO VANCOMYCIN RESISTANT ENTEROCOCCUS ... Complete Objective GENERAL: The patient is a very pleasant 66-year-old female, in no apparent respiratory distress, alert and oriented x4. HEENT: Atraumatic and normocephalic. ENT, pupils are equal, round, and reactive to light and accommodation. Extraocular muscles are intact. NECK: JVP less than 5 cm. No carotid bruits. Carotid upstrokes 2+ bilaterally. CARDIOVASCULAR: Normal S1 and S2. Regular rate and rhythm. Tachycardic. Summation gallops with 2/6 MSM at LSB. PMI is at fourth intercostal space in the midclavicular line. LUNGS: Clear to auscultation bilaterally. ABDOMEN: Soft, nontender, and nondistended. No hepatosplenomegaly. Positive bowel sounds. EXTREMITIES: No evidence of edema, clubbing, or cyanosis. ARMANDO BLUE Mar 11, 2017 23:15
[2017-03-12 00:42] VITALS: BP 121/55
[2017-03-12] MEDS: NS IVPB SCH ×2 (03:52→21:06)
[2017-03-12] MEDS: GENTAMICIN IVPB SCH ×2 (03:52→21:06)
[2017-03-12 04:49] VITALS: BP 119/52
[2017-03-12] MEDS: Vancomycin 750mg/NS 250ml IVPB SCH (05:41)
[2017-03-12 07:28] LABS: ALANINE AMINOTRANSFERASE 17 U/L (12-78); ALBUMIN/GLOBULIN RATIO 0.5 (1.0-2.7); ANION GAP 10 mmol/L (5-15); ASPARTATE AMINO TRANSFERASE 23 U/L (15-37); CALCIUM 8.2 MG/DL (8.5-10.1); CARBON DIOXIDE 19 MMOL/L (21-32); CHLORIDE 110 MMOL/L (98-107); CREATININE 0.6 MG/DL (0.55-1.30); GLOMERULAR FILTRATION RATE > 60 mL/min (>60); POTASSIUM 3.6 MMOL/L (3.5-5.1); SODIUM 139 MMOL/L (136-145); TOTAL PROTEIN 6.9 G/DL (6.4-8.2)
[2017-03-12 08:00] VITALS: BP 127/57
[2017-03-12] MEDS: Docusate 100mg cap ORAL SCH ×4 (08:33→18:14)
[2017-03-12] MEDS: Aspirin EC 81mg tab ORAL SCH (08:33)
[2017-03-12] MEDS: Enoxaparin 40mg Inj SUBQ SCH (08:38)
[2017-03-12] MEDS: Clobetasol Cream 0.05% 15gm TOPIC SCH ×2 (09:00→21:07)
--- NOTE | 2017-03-12 09:36 | Infectious Diseases Prog Note ---
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), on tx -Afebrile, no leukocytosis - 2D Echo : Aortic Veg + Elev ESR : 119 HLD OA spinal stenosis DM2 Bipolar disorder Spondylolisthesis Asthma Plan: -Will continue her already established treatment for endocarditis with Doxycycline (untill 06/03/17) ,Gentamycin 60mg IV bid (untill 03/17/11), IV Vancomycin (until 04/09/17) -monitor platelets, Cr -typically bartonella endocarditis consist of Doxy for 6-12 weeks and Genta for 2 weeks; however patient has been managed by another ID physician as an outpatient E monitor Bcx -bartonella serologies -f/u cx -Monitor CBC/BMP, temperatures Subjective Allergies: Coded Allergies: CEPHALEXIN (Verified Allergy, Intermediate, diffuse maculopapular rash, ) Uncoded Allergies: Baby oil (Allergy, Severe, Itching, 03/08/17) Subjective afebrile Objective Vital Signs Last 24 Hour Vital Signs Date Time Temp Pulse Resp B/P (MAP) Pulse Ox O2 Delivery O2 Flow Rate FiO2 03/12/17 08:00 97.1 108 20 127/57 97 Room Air 03/12/17 04:49 97.5 94 18 119/52 95 Room Air 03/12/17 04:00 106 03/12/17 00:42 97.5 100 18 121/55 92 Room Air 03/12/17 00:00 106 03/11/17 20:35 97.5 109 18 115/55 98 Room Air 03/11/17 20:00 110 03/11/17 19:30 110 20 Room Air 21 03/11/17 16:00 98.6 109 21 110/50 93 Nasal Cannula 2.0 03/11/17 16:00 109 03/11/17 12:00 97.9 108 20 127/63 93 Room Air 03/11/17 12:00 114 Height (Feet): 5 Height (Inches): 4.00 Weight (Pounds): 140 HEENT: mucous membranes moist Respiratory/Chest: normal breath sounds Cardiovascular: normal peripheral pulses Abdomen: soft, non tender Laboratory Tests Test 03/11/17 13:05 03/12/17 06:00 Vancomycin Level Trough 9.2 ug/mL (5.0-12.0) Sodium Level 139 MMOL/L (136-145) Potassium Level 3.6 MMOL/L (3.5-5.1) Chloride Level 110 MMOL/L (98-107) H Carbon Dioxide Level 19 MMOL/L (21-32) L Anion Gap 10 mmol/L (5-15) Blood Urea Nitrogen 15 mg/dL (7-18) Creatinine 0.6 MG/DL (0.55-1.30) Estimat Glomerular Filtration Rate > 60 mL/min (>60) Glucose Level 139 MG/DL (74-106) H Calcium Level 8.2 MG/DL (8.5-10.1) L Total Bilirubin 0.3 MG/DL (0.2-1.0) Aspartate Amino Transf (AST/SGOT) 23 U/L (15-37) Alanine Aminotransferase (ALT/SGPT) 17 U/L (12-78) Alkaline Phosphatase 83 U/L (46-116) Total Protein 6.9 G/DL (6.4-8.2) Albumin 2.4 G/DL (3.4-5.0) L Globulin 4.5 g/dL Albumin/Globulin Ratio 0.5 (1.0-2.7) L Current Medications Medications (Trade) Dose Ordered Sig/[place] Route PRN Reason Start Time Stop Time Status Last Admin Dose Admin Acetaminophen (Tylenol) 650 mg Q4H PRN ORAL For Pain 03/08/17 21:00 04/07/17 20:59 Acetaminophen/ Hydrocodone Bitart ([place] 5/325) 1 tab Q6H PRN ORAL For Moderate to Severe Pain 03/08/17 21:00 03/15/17 20:59 Albuterol Sulfate (Proventil) 2.5 mg Q4H PRN HHN Shortness of Breath 03/08/17 21:00 03/13/17 20:59 Aspirin (Ecotrin) 81 mg DAILY ORAL 03/09/17 09:00 04/08/17 08:59 03/12/17 08:33 Atorvastatin Calcium (Lipitor) 40 mg BEDTIME ORAL 03/08/17 22:30 04/07/17 22:29 03/11/17 20:40 Chlorhexidine Gluconate (Ling-Hex 2%) 1 applic DAILY@2000 TOPIC 03/09/17 20:00 04/08/17 19:59 03/11/17 20:50 Clobetasol Propionate (Temovate) 1 applic Q12HR TOPIC 03/10/17 21:00 04/09/17 20:59 03/11/17 20:51 Diphenhydramine HCl (Benadryl) 25 mg Q6H PRN IVP Itching 03/08/17 22:00 04/07/17 21:59 03/10/17 16:37 Docusate Sodium (Colace) 100 mg TWICE A DAY ORAL 03/09/17 09:00 04/08/17 08:59 03/11/17 18:01 Doxycycline Monohydrate (Vibramycin) 100 mg EVERY 12 HOURS ORAL 03/08/17 22:30 03/15/17 22:29 03/12/17 08:33 Enoxaparin Sodium (Lovenox) 40 mg DAILY SUBQ 03/09/17 13:00 04/08/17 12:59 03/12/17 08:38 Fluoxetine HCl (PROzac) 20 mg DAILY ORAL 03/09/17 09:00 04/08/17 08:59 03/12/17 08:35 Gentamicin Protocol (Gentamicin pharmacy to dose) 1 ea DAILY PRN MISC Per rx protocol 03/09/17 13:00 03/17/17 23:55 Gentamicin Sulfate 60 mg/ Sodium Chloride 56.5 ml @ 110 mls/hr Q12H IVPB 03/09/17 16:00 03/16/17 15:59 03/12/17 03:52 Metformin HCl (Glucophage) 850 mg BID ORAL 03/09/17 09:00 04/08/17 08:59 03/12/17 08:35 Olanzapine (ZyPREXA) 5 mg BEDTIME ORAL 03/08/17 22:30 04/07/17 22:29 03/11/17 20:40 Vancomycin HCl (Vanco rx to dose) 1 ea DAILY PRN MISC Per rx protocol 03/09/17 13:00 04/08/17 12:59 Vancomycin/Sodium Chloride 250 ml @ 166.667 mls/hr Q8HR IVPB 03/11/17 22:00 03/16/17 21:59 03/12/17 05:41 ALYSSA REYES M.D. Mar 12, 2017 09:36
[2017-03-12 09:39] LABS: OTHERS PATHOLOGIST COMMENT
[2017-03-12 12:00] VITALS: BP_SYST 125; BP_SYST 150; BP_DIAS 65; BP_DIAS 94
[2017-03-12 16:00] VITALS: BP 133/59
--- NOTE | 2017-03-12 17:33 | General Progress Note ---
Assessment/Plan Status: stable Assessment/Plan 1. Acute encephlopathy 2. Sinus Tachy cardia 3. Pleural effusion 4. Pericardial effusion 5. Endocarditis- Aortic Valve -h/o - c/w abx 6. Iatrogenic skin rashes 4. Diabetes type 2. 5. Hypertension. 6. Hypercholesterolemia. 7. Asthma. 8. Osteoarthritis of the bilateral knees. 9. Chronic low back pain. 10. GI-DVT prophylaxia Plan: will proceed with NATHAN aviva-Valvular complications merits additional w/u Subjective ROS Limited/Unobtainable: No Constitutional: Reports: malaise HEENT: Reports: no symptoms Cardiovascular: Reports: no symptoms Respiratory: Reports: no symptoms Allergies: Coded Allergies: CEPHALEXIN (Verified Allergy, Intermediate, diffuse maculopapular rash, ) Uncoded Allergies: Baby oil (Allergy, Severe, Itching, 03/08/17) Subjective persistent Diffuse maculo papular rashes all over Objective Last 24 Hour Vital Signs Date Time Temp Pulse Resp B/P (MAP) Pulse Ox O2 Delivery O2 Flow Rate FiO2 03/12/17 16:00 97.8 112 21 133/59 96 Room Air 03/12/17 12:00 97.5 80 20 125/65 96 Room Air 03/12/17 12:00 107 03/12/17 08:35 87 20 Room Air 21 03/12/17 08:00 110 03/12/17 08:00 97.1 108 20 127/57 97 Room Air 03/12/17 04:49 97.5 94 18 119/52 95 Room Air 03/12/17 04:00 106 03/12/17 00:42 97.5 100 18 121/55 92 Room Air 03/12/17 00:00 106 03/11/17 20:35 97.5 109 18 115/55 98 Room Air 03/11/17 20:00 110 03/11/17 19:30 110 20 Room Air 21 Intake and Output 03/12/17 03/13/17 19:00 07:00 # Bowel Movements 2 Laboratory Tests 03/12/17 06:00: Sodium Level 139, Potassium Level 3.6, Chloride Level 110H, Carbon Dioxide Level 19L, Anion Gap 10, Blood Urea Nitrogen 15, Creatinine 0.6, Estimat Glomerular Filtration Rate > 60, Glucose Level 139H, Calcium Level 8.2L, Total Bilirubin 0.3, Aspartate Amino Transf (AST/SGOT) 23, Alanine Aminotransferase ( ALT/SGPT) 17, Alkaline Phosphatase 83, Total Protein 6.9, Albumin 2.4L, Globulin 4.5, Albumin/Globulin Ratio 0.5L 03/12/17 13:25: Vancomycin Level Trough 26.5H Height (Feet): 5 Height (Inches): 4.00 Weight (Pounds): 140 General Appearance: no apparent distress EENT: PERRL/EOMI Neck: supple Cardiovascular: tachycardia, systolic murmur Respiratory/Chest: lungs clear Abdomen: soft Extremities: non-tender 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
[2017-03-12] MEDS: Dyna-Hex 2% Top Sol 2oz TOPIC SCH (19:55)
[2017-03-12 20:42] VITALS: BP 110/56
[2017-03-12] MEDS: Atorvastatin 20mg tab ORAL SCH (21:06)
--- NOTE | 2017-03-12 22:28 | Consultation ---
History of Present Illness General Chief Complaint: Syncope Referring physician: Dr. Anderson Reason for Consultation: abnormal cxr Present Illness HPI 66-year-old female brought in by EMS after being sent in by PMD the patient was noted to have recent syncopal episode. the pt has expressed worsening of depression Allergies: Coded Allergies: CEPHALEXIN (Verified Allergy, Intermediate, diffuse maculopapular rash, ) Uncoded Allergies: Baby oil (Allergy, Severe, Itching, 03/08/17) Medication History Scheduled Aspirin* (Aspir 81*), 81 MG ORAL DAILY, (Reported) Atorvastatin Calcium* (Atorvastatin Calcium*), 40 MG ORAL BEDTIME, (Reported) Cephalexin* (Cephalexin*), 500 MG ORAL EVERY 6 HOURS, (Reported) Docusate Sodium* (Colace*), 100 MG ORAL TWICE A DAY, (Reported) Doxycycline Hyclate* (Vibramycin*), 100 MG ORAL EVERY 12 HOURS, (Reported) Enoxaparin* (Lovenox*), 40 MG SUBQ BID, (Reported) Fluoxetine Hcl* (Fluoxetine Hcl*), 20 MG ORAL DAILY, (Reported) Gentamicin In Nacl, Iso-Osm (Gentamicin 70 Mg/Ns 50 Ml Pb), 60 MG IV BID, ( Reported) Metformin Hcl* (Metformin Hcl*), 850 MG ORAL BID, (Reported) Olanzapine* (Zyprexa*), 5 MG ORAL BEDTIME, (Reported) Vancomycin HCl/D5w (Vancomycin 1.5 Gram/250 ml-D5w), 1.5 GM IV BID, (Reported) [Lispro], Unknown Dose SUBQ BEFORE MEALS, (Reported) Scheduled PRN Acetaminophen* (Acetaminophen 325MG Tablet*), 650 MG ORAL Q4H PRN for For Pain, (Reported) Albuterol Sulfate* (Albuterol Sulfate Hhn*), 3 ML INH Q4H PRN for Shortness of Breath, (Reported) Hydrocodone Bit/Acetaminophen 5-325* ([place] 5-325*), 1 TAB ORAL Q6H PRN for For Pain, (Reported) Patient History History Provided By: Patient, Medical Record, PMD Healthcare decision maker N Resuscitation status Full Code Advanced Directive on File Past Medical/Surgical History Past Medical/Surgical History: (1) Anemia (2) Endocarditis (3) QT prolongation (4) Cardiomegaly (5) Syncope Review of Systems Psychiatric: Reports: prior hx, anxiety, depressed feelings, emotional problems Physical Exam General Appearance: no apparent distress, alert Neurologic: alert, oriented x 3, responsive, depressed affect Last 24 Hour Vital Signs Date Time Temp Pulse Resp B/P (MAP) Pulse Ox O2 Delivery O2 Flow Rate FiO2 03/12/17 20:42 99.0 99 18 110/56 95 Room Air 03/12/17 19:40 112 18 Room Air 21 03/12/17 16:00 97.8 112 21 133/59 96 Room Air 03/12/17 16:00 108 03/12/17 12:00 97.5 80 20 125/65 96 Room Air 03/12/17 12:00 107 03/12/17 08:35 87 20 Room Air 21 03/12/17 08:00 110 03/12/17 08:00 97.1 108 20 127/57 97 Room Air 03/12/17 04:49 97.5 94 18 119/52 95 Room Air 03/12/17 04:00 106 03/12/17 00:42 97.5 100 18 121/55 92 Room Air 03/12/17 00:00 106 Intake and Output 03/12/17 03/13/17 19:00 07:00 # Bowel Movements 2 Laboratory Tests Test 03/12/17 06:00 03/12/17 13:25 Sodium Level 139 MMOL/L (136-145) Potassium Level 3.6 MMOL/L (3.5-5.1) Chloride Level 110 MMOL/L (98-107) H Carbon Dioxide Level 19 MMOL/L (21-32) L Anion Gap 10 mmol/L (5-15) Blood Urea Nitrogen 15 mg/dL (7-18) Creatinine 0.6 MG/DL (0.55-1.30) Estimat Glomerular Filtration Rate > 60 mL/min (>60) Glucose Level 139 MG/DL (74-106) H Calcium Level 8.2 MG/DL (8.5-10.1) L Total Bilirubin 0.3 MG/DL (0.2-1.0) Aspartate Amino Transf (AST/SGOT) 23 U/L (15-37) Alanine Aminotransferase (ALT/SGPT) 17 U/L (12-78) Alkaline Phosphatase 83 U/L (46-116) Total Protein 6.9 G/DL (6.4-8.2) Albumin 2.4 G/DL (3.4-5.0) L Globulin 4.5 g/dL Albumin/Globulin Ratio 0.5 (1.0-2.7) L Vancomycin Level Trough 26.5 ug/mL (5.0-12.0) H Height (Feet): 5 Height (Inches): 4.00 Weight (Pounds): 140 Medications Current Medications Medications (Trade) Dose Ordered Sig/[place] Route PRN Reason Start Time Stop Time Status Last Admin Dose Admin Acetaminophen (Tylenol) 650 mg Q4H PRN ORAL For Pain 03/08/17 21:00 04/07/17 20:59 Acetaminophen/ Hydrocodone Bitart ([place] 5/325) 1 tab Q6H PRN ORAL For Moderate to Severe Pain 03/08/17 21:00 03/15/17 20:59 Albuterol Sulfate (Proventil) 2.5 mg Q4H PRN HHN Shortness of Breath 03/08/17 21:00 03/13/17 20:59 Aspirin (Ecotrin) 81 mg DAILY ORAL 03/09/17 09:00 04/08/17 08:59 03/12/17 08:33 Atorvastatin Calcium (Lipitor) 40 mg BEDTIME ORAL 03/08/17 22:30 04/07/17 22:29 03/12/17 21:06 Chlorhexidine Gluconate (Ling-Hex 2%) 1 applic DAILY@1999 TOPIC 03/09/17 20:00 04/08/17 19:59 03/12/17 19:55 Clobetasol Propionate (Temovate) 1 applic Q12HR TOPIC 03/10/17 21:00 04/09/17 20:59 03/12/17 21:07 Diphenhydramine HCl (Benadryl) 25 mg Q6H PRN IVP Itching 03/08/17 22:00 04/07/17 21:59 03/10/17 16:37 Docusate Sodium (Colace) 100 mg TWICE A DAY ORAL 03/09/17 09:00 04/08/17 08:59 03/11/17 18:01 Doxycycline Monohydrate (Vibramycin) 100 mg EVERY 12 HOURS ORAL 03/08/17 22:30 03/15/17 22:29 03/12/17 21:06 Enoxaparin Sodium (Lovenox) 40 mg DAILY SUBQ 03/09/17 13:00 04/08/17 12:59 03/12/17 08:38 Fluoxetine HCl (PROzac) 20 mg DAILY ORAL 03/09/17 09:00 04/08/17 08:59 03/12/17 08:35 Gentamicin Protocol (Gentamicin pharmacy to dose) 1 ea DAILY PRN MISC Per rx protocol 03/09/17 13:00 03/17/17 23:55 Gentamicin Sulfate 60 mg/ Sodium Chloride 56.5 ml @ 110 mls/hr Q12HR IVPB 03/12/17 21:00 03/19/17 20:59 03/12/17 21:06 Metformin HCl (Glucophage) 850 mg BID ORAL 03/09/17 09:00 04/08/17 08:59 03/12/17 18:14 Olanzapine (ZyPREXA) 5 mg BEDTIME ORAL 03/08/17 22:30 04/07/17 22:29 03/12/17 21:06 Vancomycin HCl (Vanco rx to dose) 1 ea DAILY PRN MISC Per rx protocol 03/09/17 13:00 04/08/17 12:59 Vancomycin HCl 1 gm/Dextrose 275 ml @ 183.708 mls/hr Q12HR@1030,2230 IVPB 03/12/17 22:30 03/17/17 22:29 Assessment/Plan Status: stable Assessment/Plan mdd prozac 40mg zyprexa 5mg Owen Harden M.D. Mar 12, 2017 22:28
[2017-03-12] MEDS: Vancomycin 1gm/D5W 275ml IVPB SCH ×2 (23:01)
--- NOTE | 2017-03-12 23:08 | Cardiology Progress Note ---
Assessment/Plan Assessment/Plan 1. Sinus tachycardia, probably heart failure due to valvular CM, ? acute AR, NATHAN scheduled for am. 2. Possible eccentric AR, cannot assess severity by TTE, will delineate more with NATHAN. 3. 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 4. Bilateral pleural effusion 5. Possible syncopal event, normal EF, PE ruled out. Subjective Subjective Sinus rhythm at 99. Objective Last 24 Hour Vital Signs Date Time Temp Pulse Resp B/P (MAP) Pulse Ox O2 Delivery O2 Flow Rate FiO2 03/12/17 20:42 99.0 99 18 110/56 95 Room Air 03/12/17 19:40 112 18 Room Air 21 03/12/17 16:00 97.8 112 21 133/59 96 Room Air 03/12/17 16:00 108 03/12/17 12:00 97.5 80 20 125/65 96 Room Air 03/12/17 12:00 107 03/12/17 08:35 87 20 Room Air 21 03/12/17 08:00 110 03/12/17 08:00 97.1 108 20 127/57 97 Room Air 03/12/17 04:49 97.5 94 18 119/52 95 Room Air 03/12/17 04:00 106 03/12/17 00:42 97.5 100 18 121/55 92 Room Air 03/12/17 00:00 106 Intake and Output 03/12/17 03/13/17 19:00 07:00 # Bowel Movements 2 2D Echo: LVEF 50%, Poss eccentric AR ?severity,RVSP 42 mmHg, Pseudo-normal LV physio Laboratory Tests Test 03/12/17 06:00 03/12/17 13:25 Sodium Level 139 MMOL/L (136-145) Potassium Level 3.6 MMOL/L (3.5-5.1) Chloride Level 110 MMOL/L (98-107) H Carbon Dioxide Level 19 MMOL/L (21-32) L Anion Gap 10 mmol/L (5-15) Blood Urea Nitrogen 15 mg/dL (7-18) Creatinine 0.6 MG/DL (0.55-1.30) Estimat Glomerular Filtration Rate > 60 mL/min (>60) Glucose Level 139 MG/DL (74-106) H Calcium Level 8.2 MG/DL (8.5-10.1) L Total Bilirubin 0.3 MG/DL (0.2-1.0) Aspartate Amino Transf (AST/SGOT) 23 U/L (15-37) Alanine Aminotransferase (ALT/SGPT) 17 U/L (12-78) Alkaline Phosphatase 83 U/L (46-116) Total Protein 6.9 G/DL (6.4-8.2) Albumin 2.4 G/DL (3.4-5.0) L Globulin 4.5 g/dL Albumin/Globulin Ratio 0.5 (1.0-2.7) L Vancomycin Level Trough 26.5 ug/mL (5.0-12.0) H Objective GENERAL: The patient is a very pleasant 66-year-old female, in no apparent respiratory distress, alert and oriented x4. HEENT: Atraumatic and normocephalic. ENT, pupils are equal, round, and reactive to light and accommodation. Extraocular muscles are intact. NECK: JVP less than 5 cm. No carotid bruits. Carotid upstrokes 2+ bilaterally. CARDIOVASCULAR: Normal S1 and S2. Regular rate and rhythm. Tachycardic. Summation gallops with 2/6 MSM at LSB. PMI is at fourth intercostal space in the midclavicular line. LUNGS: Clear to auscultation bilaterally. ABDOMEN: Soft, nontender, and nondistended. No hepatosplenomegaly. Positive bowel sounds. EXTREMITIES: No evidence of edema, clubbing, or cyanosis. ARMANDO BLUE Mar 12, 2017 23:08
[2017-03-13] VITALS (21 sets, daily range): BP systolic 86–148; BP diastolic 21–73
--- NOTE | 2017-03-13 06:40 | Anethesia Preoperative Eval ---
Anesthesia Pre-op PMH/ROS General Date of Evaluation: Mar 13, 2017 Time of Evaluation: 06:36 Anesthesiologist: cinda ASA Score: ASA 3 Mallampati Score Class I : Soft palate, uvula, fauces, pillars visible Class II: Soft palate, uvula, fauces visible Class III: Soft palate, base of uvula visible Class IV: Only hard plate visible Mallampati Classification: Class II Surgeon: ashley Diagnosis: endocarditis Surgical Procedure: lizzie Anesthesia History: none Social History: current smoker Family History: no anesthesia problems Allergies: Coded Allergies: CEPHALEXIN (Verified Allergy, Intermediate, diffuse maculopapular rash, ) Uncoded Allergies: Baby oil (Allergy, Severe, Itching, 03/08/17) Medications: see eMAR Past Medical History Cardiovascular: Reports: HTN, other - endocarditis, cardiomegaly Pulmonary: Reports: asthma Neurologic/Psychiatric: Reports: depression/anxiety Endocrine: Reports: DM Hematology/Immune: Reports: anemia Musculoskeletal/Integumentary: Reports: OA Anesthesia Pre-op Phys. Exam Physician Exam Last Vital Signs Date Time Temp Pulse Resp B/P (MAP) Pulse Ox O2 Delivery O2 Flow Rate FiO2 03/13/17 04:51 99.7 106 18 111/56 85 Room Air 03/12/17 19:40 21 03/11/17 16:00 2.0 Constitutional: NAD Neurologic: CN 2-12 intact Cardiovascular: other - tachycardic Respiratory: CTA, other - tachypneic Gastrointestinal: S/NT/ND Airway Exam Mallampati Score: Class II MO: full Neck: supple TMD: 2fb ROM: full Teeth: missing Anesthesia Pre-op A/P Labs Labs Test 03/10/17 15:30 03/10/17 17:00 03/10/17 20:15 03/11/17 06:00 Gentamicin Level Trough 0.7 ug/mL (0.3-2.0) Gentamicin Level Peak 2.1 ug/mL (4.0-10.0) Stool Occult Blood Negative (NEGATIVE) White Blood Count 3.0 K/UL (4.8-10.8) Red Blood Count 2.95 M/UL (4.20-5.40) Hemoglobin 8.5 G/DL (12.0-16.0) Hematocrit 26.6 % (37.0-47.0) Mean Corpuscular Volume 90 FL (80-99) Mean Corpuscular Hemoglobin 28.9 PG (27.0-31.0) Mean Corpuscular Hemoglobin Concent 32.0 G/DL (32.0-36.0) Red Cell Distribution Width 15.0 % (11.6-14.8) Platelet Count 190 K/UL (150-450) Mean Platelet Volume 6.7 FL (6.5-10.1) Neutrophils (%) (Auto) % (45.0-75.0) Lymphocytes (%) (Auto) % (20.0-45.0) Monocytes (%) (Auto) % (1.0-10.0) Eosinophils (%) (Auto) % (0.0-3.0) Basophils (%) (Auto) % (0.0-2.0) Differential Total Cells Counted 100 Neutrophils % (Manual) 80 % (45-75) Lymphocytes % (Manual) 13 % (20-45) Monocytes % (Manual) 7 % (1-10) Eosinophils % (Manual) 0 % (0-3) Basophils % (Manual) 0 % (0-2) Band Neutrophils 0 % (0-8) Other Cell Type Pathologist comment Platelet Estimate Adequate Platelet Morphology Normal Hypochromasia 1+ Anisocytosis 1+ Erythrocyte Sedimentation Rate 119 MM/HR (0-30) Reticulocyte Count 0.9 % (0.0-2.0) Prothrombin Time 11.3 SEC (9.30-11.50) Prothromb Time International Ratio 1.1 (0.9-1.1) Activated Partial Thromboplast Time 29 SEC (23-33) Sodium Level 138 MMOL/L (136-145) Potassium Level 4.0 MMOL/L (3.5-5.1) Chloride Level 107 MMOL/L (98-107) Carbon Dioxide Level 23 MMOL/L (21-32) Anion Gap 8 mmol/L (5-15) Blood Urea Nitrogen 16 mg/dL (7-18) Creatinine 0.8 MG/DL (0.55-1.30) Estimat Glomerular Filtration Rate > 60 mL/min (>60) Glucose Level 149 MG/DL (74-106) Calcium Level 8.8 MG/DL (8.5-10.1) Iron Level 17 ug/dL (50-175) Total Iron Binding Capacity 287 ug/dL (250-450) Percent Iron Saturation 6 % (15-50) Unsaturated Iron Binding 270 ug/dL (112-346) Total Bilirubin 0.2 MG/DL (0.2-1.0) Aspartate Amino Transf (AST/SGOT) 23 U/L (15-37) Alanine Aminotransferase (ALT/SGPT) 18 U/L (12-78) Alkaline Phosphatase 98 U/L (46-116) Lactate Dehydrogenase 179 U/L (81-234) Troponin I 0.233 ng/mL (0.000-0.056) Pro-B-Type Natriuretic Peptide 2905 pg/mL (0-125) Total Protein 7.4 G/DL (6.4-8.2) Albumin 2.7 G/DL (3.4-5.0) Globulin 4.7 g/dL Albumin/Globulin Ratio 0.6 (1.0-2.7) Vitamin B12 Level 257 PG/ML (193-986) Folate 11.1 NG/ML (3.1-17.5) Test 03/11/17 13:05 03/12/17 06:00 03/12/17 13:25 Vancomycin Level Trough 9.2 ug/mL (5.0-12.0) 26.5 ug/mL (5.0-12.0) Sodium Level 139 MMOL/L (136-145) Potassium Level 3.6 MMOL/L (3.5-5.1) Chloride Level 110 MMOL/L (98-107) Carbon Dioxide Level 19 MMOL/L (21-32) Anion Gap 10 mmol/L (5-15) Blood Urea Nitrogen 15 mg/dL (7-18) Creatinine 0.6 MG/DL (0.55-1.30) Estimat Glomerular Filtration Rate > 60 mL/min (>60) Glucose Level 139 MG/DL (74-106) Calcium Level 8.2 MG/DL (8.5-10.1) Total Bilirubin 0.3 MG/DL (0.2-1.0) Aspartate Amino Transf (AST/SGOT) 23 U/L (15-37) Alanine Aminotransferase (ALT/SGPT) 17 U/L (12-78) Alkaline Phosphatase 83 U/L (46-116) Total Protein 6.9 G/DL (6.4-8.2) Albumin 2.4 G/DL (3.4-5.0) Globulin 4.5 g/dL Albumin/Globulin Ratio 0.5 (1.0-2.7) Risk Assessment & Plan Assessment: asa3 Plan: mac Status Change Before Surgery: No Pre-Antibiotics Drug: OSVALDO Mcdaniel Mar 13, 2017 06:40
[2017-03-13] MEDS ORDERED: NS 500ML IV ONE (07:30)
--- NOTE | 2017-03-13 07:31 | Pre-Procedure Note/Attestation ---
Pre-Procedure Note/Attestation Complete Prior to Procedure Procedure Narrative: NATHAN Indications for Procedure Pre-Operative Diagnosis: Aortic regurgitation Aortic valve endocarditis Attestation I attest that I discussed the nature of the procedure; its benefits; risks and complications; and alternatives (and the risks and benefits of such alternatives ), prior to the procedure, with the patient (or the patient's legal authorization representative). I attest that, if there was a reasonable possibility of needing a blood transfusion, the patient (or the patient's legal authorization representative) was given the [facility] standardized written summary, pursuant to the [place] Blood Safety Act ([place] Health and Safety Code # 1645, as amended). I attest that I re-evaluated the patient just prior to the surgery and that there has been no change in the patient's H&P, except as documented below: ARMANDO BLUE Mar 13, 2017 07:31
--- NOTE | 2017-03-13 08:04 | Brief Operative Note ---
Immediate Post Operative Note Operative Note Chief Complaint: Dyspnea, tachycardia Pre-op Diagnosis: Aortic regurgitation Aortic valve endocarditis Procedure: NTAHAN Post-op Diagnosis: Acute decompensated aortic regurgitation, pressure half time of the regurgitant envelope less than 120. Very calcified and deformed aortic valve leaflets. Sub-normal LVEF estimated at 45% c/w acute systolic CHF Diastolic dominant pulmonary venous flow c/w acute diastolic CHF Surgeon: Armando ramirez MD Signal System Testing Maintainer: None Anesthesia: general Specimen: none Complications: none Condition: stable Fluids: None Estimated Blood Loss: none Drains: none Implant(s) used?: ARMANDO Sequeira Mar 13, 2017 08:04
--- NOTE | 2017-03-13 08:12 | Cardiology Progress Note ---
Assessment/Plan Assessment/Plan 1. Sinus tachycardia, probably heart failure due to severely decompensated aortic regurgitation with pressure half time <200. Transfer to ICU for Nipride gtt. 2. Severe aortic valve regurgitation due to endocarditis causing deformity and calcification of the valve leaflets, in view of the wide pulse pressure, cannot chronicity of aortic regurgitation. 3. Bilateral pleural effusion 4. Syncopal event due to decreased forward flow. Subjective Subjective Sinus tachycardia at 105. Tachypneic s/p NATHAN Objective Last 24 Hour Vital Signs Date Time Temp Pulse Resp B/P (MAP) Pulse Ox O2 Delivery O2 Flow Rate FiO2 03/13/17 04:51 99.7 106 18 111/56 96 Nasal Cannula 2.0 03/13/17 04:00 98 03/13/17 00:46 98.4 98 18 114/54 94 Room Air 03/13/17 00:00 112 03/12/17 20:42 99.0 99 18 110/56 95 Room Air 03/12/17 20:00 107 03/12/17 19:40 112 18 Room Air 21 03/12/17 16:00 97.8 112 21 133/59 96 Room Air 03/12/17 16:00 108 03/12/17 12:00 97.5 80 20 125/65 96 Room Air 03/12/17 12:00 107 03/12/17 08:35 87 20 Room Air 21 2D Echo: NATHAN: LVEF at 45%, severe decompensated AR, - bubble, LVDD, LV enlarged Laboratory Tests Test 03/12/17 13:25 03/13/17 07:00 Vancomycin Level Trough 26.5 ug/mL (5.0-12.0) H Sodium Level Pending Potassium Level Pending Chloride Level Pending Carbon Dioxide Level Pending Blood Urea Nitrogen Pending Creatinine Pending Estimat Glomerular Filtration Rate Pending Glucose Level Pending Calcium Level Pending Total Bilirubin Pending Aspartate Amino Transf (AST/SGOT) Pending Alanine Aminotransferase (ALT/SGPT) Pending Alkaline Phosphatase Pending Total Protein Pending Albumin Pending Globulin Pending Objective GENERAL: The patient is a very pleasant 66-year-old female, in no apparent respiratory distress, alert and oriented x4. HEENT: Atraumatic and normocephalic. ENT, pupils are equal, round, and reactive to light and accommodation. Extraocular muscles are intact. NECK: JVP less than 5 cm. No carotid bruits. Carotid upstrokes 2+ bilaterally. CARDIOVASCULAR: Normal S1 and S2. Regular rate and rhythm. Tachycardic. Summation gallops with 2/6 MSM at LSB. PMI is at fourth intercostal space in the midclavicular line. LUNGS: Clear to auscultation bilaterally. ABDOMEN: Soft, nontender, and nondistended. No hepatosplenomegaly. Positive bowel sounds. EXTREMITIES: No evidence of edema, clubbing, or cyanosis. ARMANDO BLUE Mar 13, 2017 08:12
[2017-03-13] MEDS ORDERED: Atropine Inj 1mg/10ml Syr IV PRN (08:15)
[2017-03-13] MEDS ORDERED: DiphenhydrAMINE 50mg/ml Inj IVP PRN ×2 (08:15→16:00)
[2017-03-13] MEDS ORDERED: Midazolam 2mg/2ml Inj IVP PRN (08:15)
[2017-03-13] MEDS ORDERED: fentaNYL 100 mcg/2 mL IV PRN (08:15)
[2017-03-13 08:21] LABS: ALANINE AMINOTRANSFERASE 23 U/L (12-78); ALBUMIN/GLOBULIN RATIO 0.6 (1.0-2.7); ANION GAP 11 mmol/L (5-15); ASPARTATE AMINO TRANSFERASE 22 U/L (15-37); CALCIUM 8.7 MG/DL (8.5-10.1); CARBON DIOXIDE 21 MMOL/L (21-32); CHLORIDE 106 MMOL/L (98-107); CREATININE 0.8 MG/DL (0.55-1.30); GLOMERULAR FILTRATION RATE > 60 mL/min (>60); POTASSIUM 3.5 MMOL/L (3.5-5.1); SODIUM 138 MMOL/L (136-145); TOTAL PROTEIN 7.3 G/DL (6.4-8.2)
--- NOTE | 2017-03-13 08:53 | Immediate Post-Op Evaluation ---
Immediate Post-Op Evalulation Immediate Post-Op Evalulation Procedure: lizzie Date of Evaluation: Mar 13, 2017 Time of Evaluation: 08:13 IV Fluids: 100ml 0.9ns Blood Products: none Estimated Blood Loss: negligible Blood Pressure Systolic: 130 Blood Pressure Diastolic: 54 Pulse Rate: 106 Respiratory Rate: 40 O2 Sat by Pulse Oximetry: 97 Temperature (Fahrenheit): 98.9 Pain Score (1-10): 0 Nausea: No Vomiting: No Complications none Patient Status: awake, reacts, patent Hydration Status: adequate Drug: OSVALDO Mcdaniel Mar 13, 2017 08:53
--- NOTE | 2017-03-13 08:57 | 48 Hour Post Anesthesia Eval ---
Post Anesthesia Evaluation Procedure: lizzie Date of Evaluation: Mar 13, 2017 Time of Evaluation: 08:56 Blood Pressure Systolic: 133 0: 60 Pulse Rate: 104 Respiratory Rate: 43 Temperature (Fahrenheit): 98.9 O2 Sat by Pulse Oximetry: 97 Airway: patent Nausea: No Vomiting: No Pain Intensity: 0 Hydration Status: adequate Cardiopulmonary Status: stable Mental Status/LOC: patient returned to baseline Post-Anesthesia Complications: none Follow-up care needed: N/A OSVALDO ALCANTAR Mar 13, 2017 08:57
[2017-03-13] MEDS: Enoxaparin 40mg Inj SUBQ SCH (09:00)
--- NOTE | 2017-03-13 09:03 | Infectious Diseases Prog Note ---
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 HLD OA spinal stenosis DM2 Bipolar disorder Spondylolisthesis Asthma Plan: -Will continue her already established treatment for endocarditis with Doxycycline (untill 06/03/17) ,Gentamycin 60mg IV bid (untill 03/17/11), IV Vancomycin (until 04/09/17) -monitor platelets, Cr -typically bartonella endocarditis consist of Doxy for 6-12 weeks and Genta for 2 weeks; however patient has been managed by another ID physician as an outpatient E monitor Bcx -bartonella serologies -f/u cx -Monitor CBC/BMP, temperatures - NATHAN report : P - transfer to outside facility for AVR Subjective Allergies: Coded Allergies: CEPHALEXIN (Verified Allergy, Intermediate, diffuse maculopapular rash, ) Uncoded Allergies: Baby oil (Allergy, Severe, Itching, 03/08/17) Subjective Transferred to ICU for Nipride gtt. Objective Vital Signs Last 24 Hour Vital Signs Date Time Temp Pulse Resp B/P (MAP) Pulse Ox O2 Delivery O2 Flow Rate FiO2 03/13/17 08:57 104 43 97 03/13/17 08:53 106 40 97 03/13/17 08:45 117 30 144/60 100 Nasal Cannula 2.0 03/13/17 08:40 98.6 120 29 148/71 100 Nasal Cannula 2.0 03/13/17 08:40 119 03/13/17 08:35 114 34 141/72 100 Nasal Cannula 2.0 03/13/17 08:24 110 32 142/73 100 Nasal Cannula 2.0 03/13/17 08:15 101 28 122/67 100 Nasal Cannula 2.0 03/13/17 08:10 101 28 114/61 100 Nasal Cannula 2.0 03/13/17 08:05 104 26 117/58 97 Nasal Cannula 2.0 03/13/17 08:01 98.9 105 24 120/64 97 Nasal Cannula 2.0 03/13/17 07:44 Room Air 11/15/17 04:51 99.7 106 18 111/56 96 Nasal Cannula 2.0 03/13/17 04:00 98 03/13/17 00:46 98.4 98 18 114/54 94 Room Air 03/13/17 00:00 112 03/12/17 20:42 99.0 99 18 110/56 95 Room Air 03/12/17 20:00 107 03/12/17 19:40 112 18 Room Air 21 03/12/17 16:00 97.8 112 21 133/59 96 Room Air 03/12/17 16:00 108 03/12/17 12:00 97.5 80 20 125/65 96 Room Air 03/12/17 12:00 107 Height (Feet): 5 Height (Inches): 4.00 Weight (Pounds): 140 HEENT: anicteric Respiratory/Chest: no respiratory distress Cardiovascular: regular rhythm Abdomen: soft, non tender Laboratory Tests Test 03/12/17 13:25 03/13/17 07:00 Vancomycin Level Trough 26.5 ug/mL (5.0-12.0) H Sodium Level 138 MMOL/L (136-145) Potassium Level 3.5 MMOL/L (3.5-5.1) Chloride Level 106 MMOL/L (98-107) Carbon Dioxide Level 21 MMOL/L (21-32) Anion Gap 11 mmol/L (5-15) Blood Urea Nitrogen 16 mg/dL (7-18) Creatinine 0.8 MG/DL (0.55-1.30) Estimat Glomerular Filtration Rate > 60 mL/min (>60) Glucose Level 148 MG/DL (74-106) H Calcium Level 8.7 MG/DL (8.5-10.1) Total Bilirubin 0.4 MG/DL (0.2-1.0) Aspartate Amino Transf (AST/SGOT) 22 U/L (15-37) Alanine Aminotransferase (ALT/SGPT) 23 U/L (12-78) Alkaline Phosphatase 90 U/L (46-116) Total Protein 7.3 G/DL (6.4-8.2) Albumin 2.7 G/DL (3.4-5.0) L Globulin 4.6 g/dL Albumin/Globulin Ratio 0.6 (1.0-2.7) L Current Medications Medications (Trade) Dose Ordered Sig/[place] Route PRN Reason Start Time Stop Time Status Last Admin Dose Admin Acetaminophen (Tylenol) 650 mg Q4H PRN ORAL For Pain 03/08/17 21:00 04/07/17 20:59 Acetaminophen/ Hydrocodone Bitart ([place] 5/325) 1 tab Q6H PRN ORAL For Moderate to Severe Pain 03/08/17 21:00 03/15/17 20:59 Albuterol Sulfate (Proventil) 2.5 mg Q4H PRN HHN Shortness of Breath 03/08/17 21:00 03/13/17 20:59 Atorvastatin Calcium (Lipitor) 40 mg BEDTIME ORAL 03/08/17 22:30 04/07/17 22:29 03/12/17 21:06 Atropine Sulfate (Atropine) 0.5 mg Q5M PRN IV bpm less than 45 03/13/17 08:15 03/13/17 14:00 Chlorhexidine Gluconate (Ling-Hex 2%) 1 applic DAILY@2000 TOPIC 03/09/17 20:00 04/08/17 19:59 03/12/17 19:55 Clobetasol Propionate (Temovate) 1 applic Q12HR TOPIC 03/10/17 21:00 04/09/17 20:59 03/12/17 21:07 Diphenhydramine HCl (Benadryl) 25 mg Q15M PRN IVP Itching 03/13/17 08:15 03/13/17 14:00 Diphenhydramine HCl (Benadryl) 25 mg Q6H PRN IVP Itching 03/08/17 22:00 04/07/17 21:59 03/10/17 16:37 Docusate Sodium (Colace) 100 mg TWICE A DAY ORAL 03/09/17 09:00 04/08/17 08:59 03/11/17 18:01 Doxycycline Monohydrate (Vibramycin) 100 mg EVERY 12 HOURS ORAL 03/08/17 22:30 03/15/17 22:29 03/12/17 21:06 Enoxaparin Sodium (Lovenox) 40 mg DAILY SUBQ 03/09/17 13:00 04/08/17 12:59 03/12/17 08:38 Fentanyl Citrate (Sublimaze 100 mcg/2 mL) 25 mcg Q10M PRN IV Moderate Pain (Pain Scale 4-6) 03/13/17 08:15 03/13/17 14:00 Fluoxetine HCl (PROzac) 40 mg DAILY ORAL 03/13/17 09:00 04/12/17 08:59 Gentamicin Protocol (Gentamicin pharmacy to dose) 1 ea DAILY PRN MISC Per rx protocol 03/09/17 13:00 03/17/17 23:55 Gentamicin Sulfate 60 mg/ Sodium Chloride 56.5 ml @ 110 mls/hr Q12HR IVPB 03/12/17 21:00 03/19/17 20:59 03/12/17 21:06 Hydralazine HCl (Apresoline) 5 mg Q30M PRN IV SBP>160 OR___/DBP>90 OR___ 03/13/17 08:15 03/13/17 14:00 Metformin HCl (Glucophage) 850 mg BID ORAL 03/09/17 09:00 04/08/17 08:59 03/12/17 18:14 Midazolam HCl (Versed 2mg/2ml vial) 1 mg Q15M PRN IVP For Anxiety 03/13/17 08:15 03/13/17 14:00 Olanzapine (ZyPREXA) 5 mg BEDTIME ORAL 03/08/17 22:30 04/07/17 22:29 03/12/17 21:06 Ondansetron HCl (Zofran) 4 mg Q1H PRN IVP Nausea & Vomiting 03/13/17 08:15 03/13/17 14:00 Sodium Nitroprusside 50 mg/Dextrose 250 ml @ 5.71 mls/hr Q24H IV 03/13/17 08:15 04/12/17 08:14 Sodium Chloride 1,000 ml @ 10 mls/hr Q24H IVLG 03/13/17 08:07 03/13/17 10:06 Vancomycin HCl (Vanco rx to dose) 1 ea DAILY PRN MISC Per rx protocol 03/09/17 13:00 04/08/17 12:59 Vancomycin HCl 1 gm/Dextrose 275 ml @ 183.708 mls/hr Q12HR@1030,2230 IVPB 03/12/17 22:30 03/17/17 22:29 03/12/17 23:01 ALYSSA REYES M.D. Mar 13, 2017 09:03
--- NOTE | 2017-03-13 11:28 | Pulmonology Progress Note ---
Assessment/Plan Problems: (1) Cardiomegaly (2) Syncope (3) Anemia (4) Endocarditis Assessment/Plan CT chest reviewed continue current abx for endocarditis check electrolytes all noted, labs, meds reviewed. keep in teli Subjective ROS Limited/Unobtainable: Yes Interval Events: late note for 03/12 Constitutional: Reports: no symptoms HEENT: Repors: no symptoms Respiratory: Reports: no symptoms Allergies: Coded Allergies: CEPHALEXIN (Verified Allergy, Intermediate, diffuse maculopapular rash, ) Uncoded Allergies: Baby oil (Allergy, Severe, Itching, 03/08/17) Objective Last 24 Hour Vital Signs Date Time Temp Pulse Resp B/P (MAP) Pulse Ox O2 Delivery O2 Flow Rate FiO2 03/13/17 08:57 104 43 97 03/13/17 08:53 106 40 97 03/13/17 08:45 117 30 144/60 100 Nasal Cannula 2.0 03/13/17 08:40 98.6 120 29 148/71 100 Nasal Cannula 2.0 03/13/17 08:40 119 03/13/17 08:35 114 34 141/72 100 Nasal Cannula 2.0 03/13/17 08:24 110 32 142/73 100 Nasal Cannula 2.0 03/13/17 08:15 101 28 122/67 100 Nasal Cannula 2.0 03/13/17 08:10 101 28 114/61 100 Nasal Cannula 2.0 03/13/17 08:05 104 26 117/58 97 Nasal Cannula 2.0 03/13/17 08:01 98.9 105 24 120/64 97 Nasal Cannula 2.0 03/13/17 08:00 105 03/13/17 07:44 Room Air 03/13/17 04:51 99.7 106 18 111/56 96 Nasal Cannula 2.0 03/13/17 04:00 98 03/13/17 00:46 98.4 98 18 114/54 94 Room Air 03/13/17 00:00 112 03/12/17 20:42 99.0 99 18 110/56 95 Room Air 03/12/17 20:00 107 03/12/17 19:40 112 18 Room Air 21 03/12/17 16:00 97.8 112 21 133/59 96 Room Air 03/12/17 16:00 108 03/12/17 12:00 97.5 80 20 125/65 96 Room Air 03/12/17 12:00 107 Intake and Output 03/13/17 03/14/17 19:00 07:00 Intake Total 150 ml Output Total 300 ml Balance -150 ml IV Total 150 ml Output Urine Total 300 ml Estimated Blood Loss 0 ml # Voids 1 General Appearance: WD/WN HEENT: normocephalic, atraumatic Respiratory/Chest: chest wall non-tender, lungs clear Breasts: no masses Cardiovascular: normal peripheral pulses, normal rate Abdomen: normal bowel sounds, soft, non tender Genitourinary: normal external genitalia Extremities: no clubbing Skin: no rash Lymphatic: no neck adenopathy Laboratory Tests 03/12/17 13:25: Vancomycin Level Trough 26.5H 03/13/17 07:00: Sodium Level 138, Potassium Level 3.5, Chloride Level 106, Carbon Dioxide Level 21, Anion Gap 11, Blood Urea Nitrogen 16, Creatinine 0.8, Estimat Glomerular Filtration Rate > 60, Glucose Level 148H, Calcium Level 8.7, Total Bilirubin 0.4 , Aspartate Amino Transf (AST/SGOT) 22, Alanine Aminotransferase (ALT/SGPT) 23, Alkaline Phosphatase 90, Total Protein 7.3, Albumin 2.7L, Globulin 4.6, Albumin/ Globulin Ratio 0.6L Current Medications Medications (Trade) Dose Ordered Sig/[place] Route PRN Reason Start Time Stop Time Status Last Admin Dose Admin Acetaminophen (Tylenol) 650 mg Q4H PRN ORAL For Pain 03/08/17 21:00 04/07/17 20:59 Acetaminophen/ Hydrocodone Bitart ([place] 5/325) 1 tab Q6H PRN ORAL For Moderate to Severe Pain 03/08/17 21:00 03/15/17 20:59 Albuterol Sulfate (Proventil) 2.5 mg Q4H PRN HHN Shortness of Breath 03/08/17 21:00 03/13/17 20:59 Atorvastatin Calcium (Lipitor) 40 mg BEDTIME ORAL 03/08/17 22:30 04/07/17 22:29 03/12/17 21:06 Atropine Sulfate (Atropine) 0.5 mg Q5M PRN IV bpm less than 45 03/13/17 08:15 03/13/17 14:00 Chlorhexidine Gluconate (Ling-Hex 2%) 1 applic DAILY@1999 TOPIC 03/09/17 20:00 04/08/17 19:59 03/12/17 19:55 Clobetasol Propionate (Temovate) 1 applic Q12HR TOPIC 03/10/17 21:00 04/09/17 20:59 03/12/17 21:07 Diphenhydramine HCl (Benadryl) 25 mg Q15M PRN IVP Itching 03/13/17 08:15 03/13/17 14:00 Diphenhydramine HCl (Benadryl) 25 mg Q6H PRN IVP Itching 03/08/17 22:00 04/07/17 21:59 03/10/17 16:37 Docusate Sodium (Colace) 100 mg TWICE A DAY ORAL 03/09/17 09:00 04/08/17 08:59 03/11/17 18:01 Doxycycline Monohydrate (Vibramycin) 100 mg EVERY 12 HOURS ORAL 03/08/17 22:30 03/15/17 22:29 03/12/17 21:06 Enoxaparin Sodium (Lovenox) 40 mg DAILY SUBQ 03/09/17 13:00 04/08/17 12:59 03/12/17 08:38 Fentanyl Citrate (Sublimaze 100 mcg/2 mL) 25 mcg Q10M PRN IV Moderate Pain (Pain Scale 4-6) 03/13/17 08:15 03/13/17 14:00 Fluoxetine HCl (PROzac) 40 mg DAILY ORAL 03/13/17 09:00 04/12/17 08:59 Gentamicin Protocol (Gentamicin pharmacy to dose) 1 ea DAILY PRN MISC Per rx protocol 03/09/17 13:00 03/17/17 23:55 Gentamicin Sulfate 60 mg/ Sodium Chloride 56.5 ml @ 110 mls/hr Q12HR IVPB 03/12/17 21:00 03/19/17 20:59 03/12/17 21:06 Hydralazine HCl (Apresoline) 5 mg Q30M PRN IV SBP>160 OR___/DBP>90 OR___ 03/13/17 08:15 03/13/17 14:00 Metformin HCl (Glucophage) 850 mg BID ORAL 03/09/17 09:00 04/08/17 08:59 03/12/17 18:14 Midazolam HCl (Versed 2mg/2ml vial) 1 mg Q15M PRN IVP For Anxiety 03/13/17 08:15 03/13/17 14:00 Olanzapine (ZyPREXA) 5 mg BEDTIME ORAL 03/08/17 22:30 04/07/17 22:29 03/12/17 21:06 Ondansetron HCl (Zofran) 4 mg Q1H PRN IVP Nausea & Vomiting 03/13/17 08:15 03/13/17 14:00 Sodium Nitroprusside 50 mg/Dextrose 250 ml @ 5.71 mls/hr Q24H IV 03/13/17 08:15 04/12/17 08:14 Vancomycin HCl (Vanco rx to dose) 1 ea DAILY PRN MISC Per rx protocol 03/09/17 13:00 04/08/17 12:59 Vancomycin HCl 1 gm/Dextrose 275 ml @ 183.708 mls/hr Q12HR@1030,2230 IVPB 03/12/17 22:30 03/17/17 22:29 03/12/17 23:01 DOMO MULTANI Mar 13, 2017 11:28
--- NOTE | 2017-03-13 11:33 | Pulmonolgy Critical Care Note ---
Critical Care - Asmt/Plan Problems: (1) Aortic valve insufficiency (2) Endocarditis (3) Anemia (4) Cardiomegaly Respiratory: monitor respiratory rate, adjust FIO2, CXR Cardiac: continue pressors, continue to monitor HR/BP Renal: F/U I&O, keep IV fluid Infectious Disease: check cultures Gastrointestinal: continue feedings/current rate Endocrine: monitor blood sugar, check TSH, check HgA1C Neurologic: PRN Morphine Affect: PRN ativan Notes Reviewed: furnace cleaner, cardio Discussed with: nurses, consultants, showcase trimmer, other - pt needs to be transferred to [facility] level of care. Critical Care - Objective Last 24 Hour Vital Signs Date Time Temp Pulse Resp B/P (MAP) Pulse Ox O2 Delivery O2 Flow Rate FiO2 03/13/17 08:57 104 43 97 03/13/17 08:53 106 40 97 03/13/17 08:45 117 30 144/60 100 Nasal Cannula 2.0 03/13/17 08:40 98.6 120 29 148/71 100 Nasal Cannula 2.0 03/13/17 08:40 119 03/13/17 08:35 114 34 141/72 100 Nasal Cannula 2.0 03/13/17 08:24 110 32 142/73 100 Nasal Cannula 2.0 03/13/17 08:15 101 28 122/67 100 Nasal Cannula 2.0 03/13/17 08:10 101 28 114/61 100 Nasal Cannula 2.0 03/13/17 08:05 104 26 117/58 97 Nasal Cannula 2.0 03/13/17 08:01 98.9 105 24 120/64 97 Nasal Cannula 2.0 03/13/17 08:00 105 03/13/17 07:44 Room Air 03/13/17 04:51 99.7 106 18 111/56 96 Nasal Cannula 2.0 03/13/17 04:00 98 03/13/17 00:46 98.4 98 18 114/54 94 Room Air 03/13/17 00:00 112 03/12/17 20:42 99.0 99 18 110/56 95 Room Air 03/12/17 20:00 107 03/12/17 19:40 112 18 Room Air 21 03/12/17 16:00 97.8 112 21 133/59 96 Room Air 03/12/17 16:00 108 03/12/17 12:00 97.5 80 20 125/65 96 Room Air 03/12/17 12:00 107 Status: awake Condition: critical HEENT: atraumatic Lungs: clear, chest wall tender Heart: HR/BP unstable Abdomen: soft, active bowel sounds Accucheck: 162 Critical Care - Subjective ROS Limited/Unobtainable: No Interval Events: pt transferred to ICU because of NATHAN findings, pt has acute decompensated aortic insufficiency. FI02: 21 Sputum Amount: None Drips: Nipride drip I&O: Intake and Output 03/13/17 03/14/17 19:00 07:00 Intake Total 150 ml Output Total 300 ml Balance -150 ml IV Total 150 ml Output Urine Total 300 ml Estimated Blood Loss 0 ml # Voids 1 CXR: no change Labs: Laboratory Tests Test 03/12/17 13:25 03/13/17 07:00 Vancomycin Level Trough 26.5 ug/mL (5.0-12.0) H Sodium Level 138 MMOL/L (136-145) Potassium Level 3.5 MMOL/L (3.5-5.1) Chloride Level 106 MMOL/L (98-107) Carbon Dioxide Level 21 MMOL/L (21-32) Anion Gap 11 mmol/L (5-15) Blood Urea Nitrogen 16 mg/dL (7-18) Creatinine 0.8 MG/DL (0.55-1.30) Estimat Glomerular Filtration Rate > 60 mL/min (>60) Glucose Level 148 MG/DL (74-106) H Calcium Level 8.7 MG/DL (8.5-10.1) Total Bilirubin 0.4 MG/DL (0.2-1.0) Aspartate Amino Transf (AST/SGOT) 22 U/L (15-37) Alanine Aminotransferase (ALT/SGPT) 23 U/L (12-78) Alkaline Phosphatase 90 U/L (46-116) Total Protein 7.3 G/DL (6.4-8.2) Albumin 2.7 G/DL (3.4-5.0) L Globulin 4.6 g/dL Albumin/Globulin Ratio 0.6 (1.0-2.7) L DOMO MULTANI Mar 13, 2017 11:33
[2017-03-13] MEDS: Docusate 100mg cap ORAL SCH (12:07)
[2017-03-13] MEDS: GENTAMICIN IVPB SCH (12:07)
[2017-03-13] MEDS: NS IVPB SCH (12:07)
[2017-03-13] MEDS: Clobetasol Cream 0.05% 15gm TOPIC SCH (12:07)
[2017-03-13] MEDS: Vancomycin 1gm/D5W 275ml IVPB SCH ×2 (12:58)
--- NOTE | 2017-03-13 15:49 | General Progress Note ---
Assessment/Plan Status: stable Assessment/Plan 1. Acute encephlopathy 2. Sinus Tachy cardia 3. Pleural effusion 4. Pericardial effusion 5. Endocarditis- Aortic Valve -h/o - c/w abx 6. Iatrogenic skin rashes 7. AI-Severe 4. Diabetes type 2. 5. Hypertension. 6. Hypercholesterolemia. 7. Asthma. 8. Osteoarthritis of the bilateral knees. 9. Chronic low back pain. 10. GI-DVT prophylaxia Plan: sever AI discussed with Dr Villarreal, CTS. Accepted patient. ok to transfer once bed available Subjective ROS Limited/Unobtainable: No Respiratory: Reports: shortness of breath Allergies: Coded Allergies: CEPHALEXIN (Verified Allergy, Intermediate, diffuse maculopapular rash, ) Uncoded Allergies: Baby oil (Allergy, Severe, Itching, 03/08/17) Subjective persistent Diffuse maculo papular rashes all over Objective Last 24 Hour Vital Signs Date Time Temp Pulse Resp B/P (MAP) Pulse Ox O2 Delivery O2 Flow Rate FiO2 03/13/17 14:00 115 26 104/37 98 Nasal Cannula 2.0 03/13/17 13:00 121 28 112/43 97 Nasal Cannula 2.0 03/13/17 12:00 98.0 108 27 112/36 99 Nasal Cannula 2.0 03/13/17 12:00 109 03/13/17 11:00 112 28 115/36 97 Nasal Cannula 2.0 03/13/17 10:00 106 25 122/47 98 Nasal Cannula 2.0 03/13/17 09:00 115 03/13/17 09:00 108 28 140/61 99 Nasal Cannula 2.0 03/13/17 08:57 104 43 97 03/13/17 08:53 106 40 97 03/13/17 08:45 117 30 144/60 100 Nasal Cannula 2.0 03/13/17 08:40 98.6 120 29 148/71 100 Nasal Cannula 2.0 03/13/17 08:40 119 03/13/17 08:35 114 34 141/72 100 Nasal Cannula 2.0 03/13/17 08:24 110 32 142/73 100 Nasal Cannula 2.0 03/13/17 08:15 101 28 122/67 100 Nasal Cannula 2.0 03/13/17 08:10 101 28 114/61 100 Nasal Cannula 2.0 03/13/17 08:05 104 26 117/58 97 Nasal Cannula 2.0 03/13/17 08:01 98.9 105 24 120/64 97 Nasal Cannula 2.0 03/13/17 08:00 105 03/13/17 07:44 Room Air 03/13/17 04:51 99.7 106 18 111/56 96 Nasal Cannula 2.0 03/13/17 04:00 98 03/13/17 00:46 98.4 98 18 114/54 94 Room Air 03/13/17 00:00 112 03/12/17 20:42 99.0 99 18 110/56 95 Room Air 03/12/17 20:00 107 03/12/17 19:40 112 18 Room Air 21 03/12/17 16:00 97.8 112 21 133/59 96 Room Air 03/12/17 16:00 108 Intake and Output 03/13/17 03/14/17 19:00 07:00 Intake Total 1247.158 ml Output Total 550 ml Balance 697.158 ml Intake Oral 520 ml IV Total 727.158 ml Output Urine Total 550 ml Estimated Blood Loss 0 ml # Voids 3 Laboratory Tests 03/13/17 07:00: Sodium Level 138, Potassium Level 3.5, Chloride Level 106, Carbon Dioxide Level 21, Anion Gap 11, Blood Urea Nitrogen 16, Creatinine 0.8, Estimat Glomerular Filtration Rate > 60, Glucose Level 148H, Calcium Level 8.7, Total Bilirubin 0.4 , Aspartate Amino Transf (AST/SGOT) 22, Alanine Aminotransferase (ALT/SGPT) 23, Alkaline Phosphatase 90, Total Protein 7.3, Albumin 2.7L, Globulin 4.6, Albumin/ Globulin Ratio 0.6L Height (Feet): 5 Height (Inches): 4.00 Weight (Pounds): 140 General Appearance: no apparent distress EENT: PERRL/EOMI Neck: supple Cardiovascular: tachycardia, systolic murmur Respiratory/Chest: lungs clear Abdomen: soft Extremities: non-tender Neurologic: [employer] II-XII grossly normal Carolee Anderson MD Mar 13, 2017 15:49
[2017-03-13] MEDS ORDERED: Albuterol ud Inhalation HHN PRN (16:00)
[2017-03-13] MEDS ORDERED: Docusate 100mg cap ORAL SCH (18:00)
[2017-03-13] MEDS ORDERED: Dyna-Hex 2% Top Sol 2oz TOPIC SCH (20:00)
--- NOTE | 2017-03-13 20:21 | General Progress Note ---
Assessment/Plan Status: stable, progressing Subjective Date patient seen: Mar 13, 2017 Neurologic/Psychiatric: Reports: anxiety, depressed, emotional problems Allergies: Coded Allergies: CEPHALEXIN (Verified Allergy, Intermediate, diffuse maculopapular rash, ) Uncoded Allergies: Baby oil (Allergy, Severe, Itching, 03/08/17) Objective Last 24 Hour Vital Signs Date Time Temp Pulse Resp B/P (MAP) Pulse Ox O2 Delivery O2 Flow Rate FiO2 03/13/17 18:45 117 28 148/72 99 Nasal Cannula 2.0 03/13/17 18:00 112 32 86/60 98 Nasal Cannula 2.0 03/13/17 17:00 117 26 111/51 96 Nasal Cannula 2.0 03/13/17 16:00 120 03/13/17 16:00 98.6 117 27 93/21 98 Nasal Cannula 2.0 03/13/17 15:00 119 29 108/52 98 Nasal Cannula 2.0 03/13/17 14:00 115 26 104/37 98 Nasal Cannula 2.0 03/13/17 13:00 121 28 112/43 97 Nasal Cannula 2.0 03/13/17 12:00 98.0 108 27 112/36 99 Nasal Cannula 2.0 03/13/17 12:00 109 03/13/17 11:00 112 28 115/36 97 Nasal Cannula 2.0 03/13/17 10:00 106 25 122/47 98 Nasal Cannula 2.0 03/13/17 09:00 115 03/13/17 09:00 108 28 140/61 99 Nasal Cannula 2.0 03/13/17 08:57 104 43 97 03/13/17 08:53 106 40 97 03/13/17 08:45 117 30 144/60 100 Nasal Cannula 2.0 03/13/17 08:40 98.6 120 29 148/71 100 Nasal Cannula 2.0 03/13/17 08:40 119 03/13/17 08:35 114 34 141/72 100 Nasal Cannula 2.0 03/13/17 08:24 110 32 142/73 100 Nasal Cannula 2.0 03/13/17 08:15 101 28 122/67 100 Nasal Cannula 2.0 03/13/17 08:10 101 28 114/61 100 Nasal Cannula 2.0 03/13/17 08:05 104 26 117/58 97 Nasal Cannula 2.0 03/13/17 08:01 98.9 105 24 120/64 97 Nasal Cannula 2.0 03/13/17 08:00 105 03/13/17 07:44 Room Air 03/13/17 04:51 99.7 106 18 111/56 96 Nasal Cannula 2.0 03/13/17 04:00 98 03/13/17 00:46 98.4 98 18 114/54 94 Room Air 03/13/17 00:00 112 03/12/17 20:42 99.0 99 18 110/56 95 Room Air Intake and Output 03/13/17 03/14/17 19:00 07:00 Intake Total 2152.908 ml Output Total 850 ml Balance 1302.908 ml Intake Oral 1100 ml IV Total 1052.908 ml Output Urine Total 850 ml Estimated Blood Loss 0 ml # Voids 5 Laboratory Tests 03/13/17 07:00: Sodium Level 138, Potassium Level 3.5, Chloride Level 106, Carbon Dioxide Level 21, Anion Gap 11, Blood Urea Nitrogen 16, Creatinine 0.8, Estimat Glomerular Filtration Rate > 60, Glucose Level 148H, Calcium Level 8.7, Total Bilirubin 0.4 , Aspartate Amino Transf (AST/SGOT) 22, Alanine Aminotransferase (ALT/SGPT) 23, Alkaline Phosphatase 90, Total Protein 7.3, Albumin 2.7L, Globulin 4.6, Albumin/ Globulin Ratio 0.6L Height (Feet): 5 Height (Inches): 4.00 Weight (Pounds): 140 General Appearance: no apparent distress, alert Neurologic: alert, oriented x 3, responsive, depressed affect Owen Harden M.D. Mar 13, 2017 20:21
[2017-03-13] MEDS ORDERED: Atorvastatin 20mg tab ORAL SCH (21:00)
[2017-03-13] MEDS ORDERED: Norco 5mg/325mg tab ORAL PRN (21:00)
[2017-03-13] MEDS ORDERED: Clobetasol Cream 0.05% 15gm TOPIC SCH (21:00)
[2017-03-13] MEDS ORDERED: NS IVPB SCH (21:00)
[2017-03-13] MEDS ORDERED: GENTAMICIN IVPB SCH (21:00)
[2017-03-13] MEDS ORDERED: Vancomycin 1 GM in D5W 275 ML IVPB SCH (22:30)
[2017-03-14] MEDS ORDERED: Gentamicin Rx monitoring MISC PRN (09:00)
[2017-03-14] MEDS ORDERED: Enoxaparin 40mg Inj SUBQ SCH (09:00)
--- NOTE | 2017-03-14 16:20 | Discharge Summary ---
Discharge Summary Hospital Course Date of Admission Mar 08, 2017 at 15:50 Date of Discharge Mar 13, 2017 at 19:15 Admitting Diagnosis syncope HPI Alee Castro is a 66 year old female who was admitted on Mar 08, 2017 at 15:50 for Syncope Hospital Course [id number] Discharge Discharge Disposition Patient was discharged to [facility] Discharge Diagnoses: Deyanira Millan NP Mar 14, 2017 16:20
--- NOTE | 2017-03-14 22:30 | Discharge Summary 2 SIG ---
DATE OF ADMISSION: 03/08/2017 DATE OF DISCHARGE: 03/13/2017 CONSULTANTS: 1. Jose Corbin M.D. 2. Jean Hsieh M.D. 3. Yesi Soto M.D. 4. Owen Harden M.D. BRIEF HOSPITAL COURSE: The patient is a 66-year-old white female, who presented to ED complaining of "I passed out." She is a resident of [facility] and per staff was undergoing physical therapy and had a heating pad on her back. The patient felt dizzy and put her head down. The patient denied loss of consciousness. EMS was called and the patient was transported to [facility]. The patient apparently was diagnosed with endocarditis in January. She was started on IV vancomycin and gentamicin and was transferred to [facility]. On evaluation at ED, she was started on IV fluids. Blood work showed anemia. EKG was in sinus tachycardia with QT prolongation. She had a chest x-ray done that showed no acute disease. Due to infective endocarditis, she was admitted to telemetry for evaluation of syncope. She came in with a PICC line on the right arm and was started on her established treatment with doxycycline, gentamicin, and IV vancomycin. CTA of the chest was negative for PE, aneurysm, or dissection. She continued to have tachycardia and on 03/13/2017 underwent transesophageal echocardiogram, findings showed acute decompensated aortic regurgitation, pressure half time of the regurgitant envelope less than 120. There was very calcified and deformed aortic valve leaflets with subnormal LVEF estimated at 45% consistent with acute systolic CHF. There was also diastolic dominant pulmonary venous flow consistent with acute diastolic CHF. Syncopal event was due to decreased forward flow. She was transferred to ICU and was started on Nipride drip. She also had worsening of depression and was given Prozac 40 mg and Zyprexa 5 mg. She was eventually transferred to [facility] for possible valve replacement. FINAL DIAGNOSES: 1. Acute encephalopathy. 2. Sinus tachycardia. 3. Aortic valve endocarditis. 4. Pleural effusion. 5. Pericardial effusion. 6. Iatrogenic skin rash. 7. Severe aortic insufficiency. 8. Hypertension. 9. Hypercholesterolemia. 10. Asthma. 11. Osteoarthritis of bilateral knees. 12. Chronic low back pain. 13. Major depressive disorder. 14. Severe aortic valve regurgitation due to endocarditis. 15. Heart failure due to severely decompensated aortic regurgitation. 16. Diabetes mellitus, type 2. 17. Spinal stenosis. 18. Hyperlipidemia. 19. Bipolar disorder. 20. Spondylolisthesis. 21. Asthma. DISPOSITION: The patient was transferred to [facility]. Carolee Anderson M.D. I have been assigned to dictate discharge summary on this account and I was not involved in the patient's management. Deyanira Millan N.P. DR: Roxanne JOB#: [id number] CC: MAEVE
--- NOTE | 2017-03-17 16:10 | Cardiology Report ---
APPROVED REPORT EKG Measurement Heart [id number] ND [id number] Sinus tachycardia Possible Left atrial enlargement Left axis deviation Septal infarct, age undetermined Abnormal ECG
--- NOTE | 2017-03-18 10:48 | Cardiology Report ---
APPROVED REPORT EXAM: Two-dimensional and M-mode echocardiogram with Doppler and color Doppler. INDICATION Endocarditis M-Mode DIMENSIONS IVSd0.9 (0.7-1.1cm)Left Atrium (MM)5.5 (1.6-4.0cm) LVDd5.9 (3.5-5.6cm)Aortic Root2.2 (2.0-3.7cm) PWd1.2 (0.7-1.1cm)Aortic Cusp Exc.1.8 (1.5-2.0cm) LVDs4.1 (2.5-4.0cm) PWs1.3 cm Normal left ventricular chamber size, systolic function and wall motion. Left ventricular ejection fraction estimated to be 55-60%. No evidence of left ventricular hypertrophy. Large posterior pleural effusion. Small percardial effusion. Mild left atrial enlargement by 2D. Right cardiac chamber sizes are within normal limits. Focal aortic valve sclerosis with adequate cusp excursion. Thickened mitral valve leaflets with normal excursion. Mild mitral annulus and aortic root calcification. Pulmonic valve not well visualized. Normal tricuspid valve structure. IVC is normal in size and collapsible with respiration. Echodensity seen on aortic cusp (vegitation/calcification), consider NATHAN if clinically indicated. A color flow and spectral Doppler study was performed and revealed: Mild aortic regurgitation. Peak aortic valve gradient of 36mmHg and a mean of 21 mmHg. Aortic valve area 1.2 cm2 calculated by continuity equation. Trace mitral regurgitation. Mitral diastolic velocities suggest reduced left ventricular relaxation c/w diastolic dysfunction grade 1. Trace tricuspid regurgitation. Tricuspid systolic velocities suggests peak right ventricular systolic pressure of 42 mmHg Consistent with mild pulmonary hypertension. Pulmonic regurgitation present.
== END 2017-03-13 19:15 | disposition short-term general hospital (02) | DRG 288 ==
LOC: EDBD 14:50 → EMR 15:21 → 2E 15:50 → ENRESERV 16:47 → EDBEDREQ 16:54 → 2E 17:45 → ICU 03-13 09:09
PROC: 02HV33Z Insertion of Infusion Device into Superior Vena Cava, Percutaneous Approach (ICD-10-PCS; principal; 2017-03-11)
PROC: B518ZZA Fluoroscopy of Superior Vena Cava, Guidance (ICD-10-PCS; principal; 2017-03-11)
PROC: B246ZZ4 Ultrasonography of Right and Left Heart, Transesophageal (ICD-10-PCS; 2017-03-13)
DX: I33.0 Acute and subacute infective endocarditis (principal); I50.41 Acute combined systolic (congestive) and diastolic (congestive) heart failure; G93.40 Encephalopathy, unspecified; D64.9 Anemia, unspecified; E11.9 Type 2 diabetes mellitus without complications; F31.9 Bipolar disorder, unspecified; G89.29 Other chronic pain; I11.0 Hypertensive heart disease with heart failure; R00.0 Tachycardia, unspecified; I35.1 Nonrheumatic aortic (valve) insufficiency; J45.909 Unspecified asthma, uncomplicated; M17.0 Bilateral primary osteoarthritis of knee; E78.00 Pure hypercholesterolemia, unspecified; R21 Rash and other nonspecific skin eruption; I45.81 Long QT syndrome; M48.00 Spinal stenosis, site unspecified; M43.10 Spondylolisthesis, site unspecified; Z79.82 Long term (current) use of aspirin
CPT/HCPCS: 36415; 36569; 71010; 71275; 76937; 80048; 80053; 80061; 80170; 80202; 82270; 82550; 82553; 82607; 82746; 82962; 83036; 83540; 83550; 83605; 83615; 83690; 83735; 83880; 84484; 85007; 85025; 85044; 85060; 85610; 85651; 85730; 86140; 86850; 86900; 86901; 87040; 87081; 93005; 93306; 93312; 93882; 94003; 94150; 94664; 99285; J3490